=== PATIENT | male | born 1950 | race American Indian/Alaskan Native ===

== ENCOUNTER 2018-03-07 13:22 | Inpatient (IN) | payer MEDICARE ==
--- NOTE | 2018-03-07 14:23 | ED PDOC ---
HPI: General Adult Time Seen by Provider: 03/07/18 13:43 Chief Complaint (Nursing): Abnormal Labs Chief Complaint (Provider): Abnormal labs, generalized weakness History Per: Patient History/Exam Limitations: no limitations Additional Complaint(s): 67yo male, with history of kidney problems, prostate disease, diabetes, comes to ER for evaluation after he was referred to the ER by Dr. Rangel. Patient states he was evaluated by Dr. Rangel and had bloodwork done and was informed today of abnormal labs, and instructed to come to the ER. He reports recently feeling weak, shortness of breath with exertion, and "itchiness" all over his back. He also reports burning upon urination, frequency of urination and states the urine stream is "weak." Otherwise, he denies any fever, chills, chest pain, abdominal pain, and offers no other medical complaints. PMD: Dr. Rangel Past Medical History Reviewed: Historical Data, Nursing Documentation, Vital Signs Vital Signs: Last Vital Signs Temp 98.6 F 03/08/18 09:00 Pulse 97 H 03/08/18 09:00 Resp 18 03/08/18 09:00 BP 149/74 03/08/18 09:00 Pulse Ox 99 03/08/18 09:00 - Medical History PMH: Benign Prostatic Hyperplasia, Diabetes, HTN, Chronic Kidney Disease - Surgical History Surgical History: No Surg Hx - Family History Family History: States: No Known Family Hx - Living Arrangements Living Arrangements: With Family - Home Medications Home Medications: Ambulatory Orders Medication Instructions Recorded Aspirin [Ecotrin] 81 mg PO DAILY 03/07/18 Dexlansoprazole [Dexilant] 60 mg PO DAILY 03/07/18 SITagliptin [Januvia] 100 mg PO DAILY 03/07/18 Cyanocobalamin [Vitamin B12] 500 mg PO BID 03/08/18 Fish Oil/Borage/Flax/Om3,6,9#1 400 mg PO DAILY 03/08/18 [Vonore 3-6-9 Complex Softgel] - Allergies Allergies/Adverse Reactions: Allergies Allergy/AdvReac Type Severity Reaction Status Date / Time No Known Allergies Allergy Verified 03/07/18 13:32 Review of Systems ROS Statement: Except As Marked, All Systems Reviewed And Found Negative Constitutional: Positive for: Weakness. Negative for: Fever, Chills Cardiovascular: Negative for: Chest Pain Respiratory: Positive for: SOB with Exertion Gastrointestinal: Negative for: Abdominal Pain Genitourinary Male: Positive for: Frequency, Other (burning upon urination) Skin: Positive for: Other ("itchiness") Physical Exam - Reviewed Nursing Documentation Reviewed: Yes Vital Signs Reviewed: Yes - Physical Exam Appears: Positive for: Non-toxic, No Acute Distress Head Exam: Positive for: ATRAUMATIC, NORMAL INSPECTION, NORMOCEPHALIC Skin: Positive for: Normal Color Eye Exam: Positive for: Normal appearance, EOMI Neck: Positive for: Normal, Supple Cardiovascular/Chest: Positive for: Regular Rate, Rhythm Respiratory: Positive for: Normal Breath Sounds Gastrointestinal/Abdominal: Positive for: Normal Exam, Soft. Negative for: Tenderness Back: Positive for: Normal Inspection. Negative for: L CVA Tenderness, R CVA Tenderness Extremity: Positive for: Normal ROM. Negative for: Pedal Edema Neurologic/Psych: Positive for: Alert, Oriented. Negative for: Motor/Sensory Deficits - Laboratory Results Result Diagrams: 03/08/18 06:10 03/08/18 06:10 - ECG O2 Sat by Pulse Oximetry: 98 (RA) Pulse Ox Interpretation: Normal Medical Decision Making Medical Decision Makin Case discussed with Dr. Rangel who reports the patient had labs last week and had elevated creatinine, elevated BUN, hypercalcermia, and elevated prostate markers. He reports these are new findings for the patient. Impression: Acute renal failure vs. acute on chronic renal failure; dyspnea on exertion; difficulty with urination Differential: Acute renal failure; obstructive uropathy; other etiologies of acute renal failure considered but not listed. Also consider prostate cancer vs. BPH Plan: -- Labs -- Urinalysis -- Nephrology and urology consult as requested by Dr. Rangel Time: [address] Rangel, and patient to be admitted to Med-Surg under his service, for acute renal failure, dehydration and hypercalcemia. Plan for admission discussed with patient, all questions answered and patient expresses understanding and is agreeable. Call placed to Dr. Casillas for nephrology consult. Dr. Rangel requesting Dr. Nath for endocrine consult. Time: [address] Casillas and orders placed as requested. CT Abdomen/ Pelvis initially ordered with contrast but after discussion with radiologist, plan amended and CT Abdomen/Pelvis ordered. Time: [address] Hawkins, who is agreeable with plan of treatment and states he will evaluate patient at bedside. Scribe Attestation: Documented by Rhonda Frias, acting as a scribe for Ellen Salomon MD. Provider Scribe Attestation: All medical record entries made by the Scribe were at my direction and personally dictated by me. I have reviewed the chart and agree that the record accurately reflects my personal performance of the history, physical exam, medical decision making, and the department course for this patient. I have also personally directed, reviewed, and agree with the discharge instructions and disposition. Disposition - Clinical Impression Clinical Impression: ARF (acute renal failure), Dehydration, Hypercalcemia - Patient ED Disposition Is Patient to be Admitted: Yes Discussed With DrDionisio: Darwin Rangel Doctor Will See Patient In The: ED Counseled Patient/Family Regarding: Studies Performed, Diagnosis - Disposition Disposition Time: 15:44 Condition: FAIR - Pt Status Changed To: Hospital Disposition Of: Inpatient - Admit Certification Admit to Inpatient:: After my assessment, the patient will require hospitalization for at least two midnights. This is because of the severity of symptoms shown, intensity of services needed, and/or the medical risk in this patient being treated as an outpatient. - POA Present On Arrival: None
[2018-03-07 14:57] LABS: BASO # 0.1 K/uL (0.0-0.2); EOS # 0.2 K/uL (0.0-0.7); EOS % 2.1 % (0.0-4.0); HEMOGLOBIN 12.2 g/dL (12.0-18.0); LYMPH # 1.5 K/uL (1.0-4.3); LYMPH % 15.5 % (20.0-40.0); MEAN CELL VOLUME 87.1 fl (80.0-94.0); MEAN CORPUSCULAR HEMOGLOBIN 29.5 pg (27.0-31.0); MEAN CORPUSCULAR HGB CONC 33.9 g/dL (33.0-37.0); MEAN PLATELET VOLUME 7.9 fl (7.2-11.7); MONO # 0.6 K/uL (0.0-0.8); MONO % 6.4 % (0.0-10.0); NEUT # 7.2 K/uL (1.8-7.0); NRBC % 0.1 % (0.0-0.0); RBC 4.15 Mil/uL (4.40-5.90); RED CELL DISTRIBUTION WIDTH 16.4 % (11.5-14.5); WHITE BLOOD COUNT 9.6 K/uL (4.8-10.8)
[2018-03-07 15:36] LABS: CALCIUM 13.3 mg/dL (8.4-10.2)
[2018-03-07] MEDS ORDERED: Sodium Chloride 0.9% 1,000 ML IV STA (15:43)
[2018-03-07 15:49] LABS: URINE BILIRUBIN NEGATIVE (NEGATIVE); URINE BLOOD NEGATIVE (NEGATIVE); URINE CLARITY CLEAR (Clear); URINE COLOR YELLOW (YELLOW); URINE GLUCOSE (UA) 50 mg/dL (Normal); URINE LEUKOCYTE ESTERASE NEG Leu/uL (Negative); URINE PROTEIN NEGATIVE (NEGATIVE); URINE UROBILINOGEN 0.2-1.0 mg/dL (0.2-1.0)
[2018-03-07 16:02] LABS: CREATININE, RANDOM URINE 47.1 mg/dL
[2018-03-07] MEDS ORDERED: Iohexol 240 (50 ml) PO ONE (16:39)
[2018-03-07 16:46] LABS: ALB/GLOB RATIO 1.3 (1.0-2.1); ALBUMIN 4.1 g/dL (3.5-5.0); BILIRUBIN,DIRECT 0.2 mg/ml (0.0-0.4); URIC ACID 7.9 mg/Dl (3.5-8.5)
--- NOTE | 2018-03-07 18:22 | US ---
Date of service: 03/07/2018 PROCEDURE: Ultrasound of the Kidneys HISTORY: nephropathy COMPARISON: None available. TECHNIQUE: Sonogram of the kidneys. FINDINGS: RIGHT KIDNEY: Measures: 4.2 x 4.6 x 8.1 cm. Normal in size, contour and echogenicity. Echogenic focus mid pole region 5 x 6 mm with distal shadowing consistent with nonobstructing calculus. LEFT KIDNEY: Measures: 4.3 x 5.2 x 8.7 cm. Normal in size, contour and echogenicity. No stone, solid mass lesion or hydronephrosis visualized. OTHER FINDINGS: None. IMPRESSION: Nonobstructing subcentimeter calculus midpole right kidney. Otherwise unremarkable study.
--- NOTE | 2018-03-07 20:01 | CP.PCM.CON ---
History of Present Illness - History of Present Illness History of Present Illness: pt is seen and examined, full consult is dictated #[id number] Past Patient History - Infectious Disease Hx of Infectious Diseases: None - Past Social History Smoking Status: Never Smoked - CARDIAC Hx Hypertension: Yes - RENAL Hx Chronic Kidney Disease: Yes - ENDOCRINE/METABOLIC Hx Diabetes Mellitus Type 2: Yes - PSYCHIATRIC Hx Substance Use: No - ANESTHESIA Hx Anesthesia: No Meds Allergies/Adverse Reactions: Allergies Allergy/AdvReac Type Severity Reaction Status Date / Time No Known Allergies Allergy Verified 03/07/18 13:32 - Medications Medications: Current Medications Sodium Chloride (Sodium Chloride 0.9%) 1,000 mls @ 150 mls/hr IV .[id number] CASSANDRA Stop: 03/09/18 20:01 Results - Vital Signs Recent Vital Signs: Last Vital Signs Temp 98.5 F 03/07/18 13:32 Pulse 98 H 03/07/18 13:32 Resp 16 03/07/18 13:32 BP 150/78 03/07/18 13:32 Pulse Ox 98 03/07/18 16:17 - Labs Result Diagrams: 03/07/18 14:54 03/07/18 14:54 Labs: Laboratory Results - last 24 hr 03/07/18 03/07/18 03/07/18 14:54 14:54 15:25 WBC 9.6 RBC 4.15 L Hgb 12.2 Hct 36.1 MCV 87.1 MCH 29.5 MCHC 33.9 RDW 16.4 H Plt Count 449 H MPV 7.9 Neut % (Auto) 75.0 Lymph % (Auto) 15.5 L [place] % (Auto) 6.4 Eos % (Auto) 2.1 Baso % (Auto) 1.0 Neut # (Auto) 7.2 H Lymph # (Auto) 1.5 [place] # (Auto) 0.6 Eos # (Auto) 0.2 Baso # (Auto) 0.1 Sodium 134 Potassium 5.0 Chloride 98 Carbon Dioxide 22 Anion Gap 19 BUN 52 H Creatinine 5.0 H Est GFR ( Amer) 14 Est GFR (Non-Af Amer) 12 Random Glucose 100 Serum Osmolality Uric Acid Calcium 13.3 H* Phosphorus 5.5 H Magnesium 2.4 H Total Bilirubin Direct Bilirubin AST ALT Alkaline Phosphatase Total Creatine Kinase 118 Total Protein Albumin Globulin Albumin/Globulin Ratio Prostate Specific Ag Urine Color Urine Clarity Urine pH Ur Specific [place] Urine Protein Urine Glucose (UA) Urine Ketones Urine Blood Urine Nitrate Urine Bilirubin Urine Urobilinogen Ur Leukocyte Esterase Urine RBC (Auto) Urine Microscopic WBC Urine Osmolality Ur Random Creatinine 47.1 Ur Random Sodium 43 Ur Random Potassium 38.2 03/07/18 03/07/18 03/07/18 15:25 16:26 16:26 WBC RBC Hgb Hct MCV MCH MCHC RDW Plt Count MPV Neut % (Auto) Lymph % (Auto) [place] % (Auto) Eos % (Auto) Baso % (Auto) Neut # (Auto) Lymph # (Auto) [place] # (Auto) Eos # (Auto) Baso # (Auto) Sodium Potassium Chloride Carbon Dioxide Anion Gap BUN Creatinine Est GFR ( Amer) Est GFR (Non-Af Amer) Random Glucose Serum Osmolality 299 Uric Acid 7.9 Calcium Phosphorus Magnesium Total Bilirubin 0.4 Direct Bilirubin 0.2 AST 33 ALT 38 Alkaline Phosphatase 88 Total Creatine Kinase Total Protein 7.2 Albumin 4.1 Globulin 3.1 Albumin/Globulin Ratio 1.3 Prostate Specific Ag 9.02 H Urine Color Yellow Urine Clarity Clear Urine pH 6.0 Ur Specific [place] 1.009 Urine Protein Negative Urine Glucose (UA) 50 Urine Ketones Negative Urine Blood Negative Urine Nitrate Negative Urine Bilirubin Negative Urine Urobilinogen 0.2-1.0 Ur Leukocyte Esterase Neg Urine RBC (Auto) < 1 Urine Microscopic WBC 3 Urine Osmolality Ur Random Creatinine Ur Random Sodium Ur Random Potassium 03/07/18 18:30 WBC RBC Hgb Hct MCV MCH MCHC RDW Plt Count MPV Neut % (Auto) Lymph % (Auto) [place] % (Auto) Eos % (Auto) Baso % (Auto) Neut # (Auto) Lymph # (Auto) [place] # (Auto) Eos # (Auto) Baso # (Auto) Sodium Potassium Chloride Carbon Dioxide Anion Gap BUN Creatinine Est GFR ( Amer) Est GFR (Non-Af Amer) Random Glucose Serum Osmolality Uric Acid Calcium Phosphorus Magnesium Total Bilirubin Direct Bilirubin AST ALT Alkaline Phosphatase Total Creatine Kinase Total Protein Albumin Globulin Albumin/Globulin Ratio Prostate Specific Ag Urine Color Urine Clarity Urine pH Ur Specific [place] Urine Protein Urine Glucose (UA) Urine Ketones Urine Blood Urine Nitrate Urine Bilirubin Urine Urobilinogen Ur Leukocyte Esterase Urine RBC (Auto) Urine Microscopic WBC Urine Osmolality 298 L Ur Random Creatinine Ur Random Sodium Ur Random Potassium
[2018-03-07] MEDS: Sodium Chloride 0.9% 1,000 ML IV SCH (22:30)
[2018-03-08] MEDS ORDERED: Ammonium Lactate 12% Cream (140 g) TOP ONE (03:21)
[2018-03-08] MEDS: Sodium Chloride 0.9% 1,000 ML IV SCH ×5 (03:39→21:55)
[2018-03-08 07:02] LABS: MEAN CELL VOLUME 87.6 fl (80.0-94.0); MEAN CORPUSCULAR HEMOGLOBIN 29.1 pg (27.0-31.0); MEAN CORPUSCULAR HGB CONC 33.2 g/dL (33.0-37.0); RBC 3.78 Mil/uL (4.40-5.90); RED CELL DISTRIBUTION WIDTH 16.5 % (11.5-14.5); WHITE BLOOD COUNT 7.6 K/uL (4.8-10.8)
[2018-03-08 07:12] LABS: ALB/GLOB RATIO 1.2 (1.0-2.1); ALBUMIN 3.5 g/dL (3.5-5.0); CALCIUM 12.8 mg/dL (8.4-10.2)
[2018-03-08] MEDS: Insulin Regular 100 units/ml SC SCH ×4 (07:20→21:56)
--- NOTE | 2018-03-08 08:04 | CON ---
DATE: 03/07/2018ENDOCRINOLOGY CONSULT HISTORY OF PRESENT ILLNESS: This is a 67-year-old male with known history of type 2 diabetes and hypertension with chronic kidney disease who presents to his primary physician's office with generalized body weakness and diffuse pleuritis and supervening progressive shortness of breath and was actually sent over to the emergency room because of extremely abnormal lab testing and is now being referred for endocrine evaluation of hypercalcemia. PAST MEDICAL HISTORY: As mentioned above, history of type 2 diabetes, currently on Januvia, taken as 100 mg once daily, history of hypertension and dyslipidemia, history of chronic gastritis. He also admits to history of benign prostatic hypertrophy. FAMILY HISTORY Positive for diabetes, hypertension. SOCIAL HISTORY The patient has supportive family. No known substance use. REVIEW OF SYSTEMS Admits to generalized body weakness with progressive dizziness and lightheadedness, worse on the day of admission. Also admits to increasing somnolence and lethargy with suboptimal energy level. Admits to precordial chest pain with progressive shortness of breath, especially on exertion. His oral intake has been variable with nausea, dyspepsia, and variable oral intake. Also admits to dysuria and urinary hesitancy and very low urinary volume and stream over the last week or so prior to admission. Admits also to lower extremity paresthesias, especially nocturnally. PHYSICAL EXAMINATION: GENERAL: This is a male, in no apparent distress. VITAL SIGNS: Blood pressure of 150/80, pulse of 100 beats per minute and regular, temperature 98, respirations 20, height is 5 feet 4 inches, weight is 125 pounds. HEENT: Head normocephalic. Eyes anicteric with pale conjunctivae. Funduscopy not possible at this time. Ears, nose, and throat, otherwise, normal. NECK: Supple. Thyroid gland is normal in size. No carotid bruits or cervical adenopathy. CARDIOPULMONARY: Some adynamic precordium. S1, S2 is rapid and regular. LUNGS: Clear to auscultation. Abdomen is flat, soft with positive bowel sounds. EXTREMITIES: No peripheral edema. Pulses are +2 bilaterally. LABORATORY DATA: His chemistry showed a BUN of 52, sodium 134, potassium 5, chloride 98, CO2 is 22, glucose is 100, creatinine is 5, calcium level is 13.3, uric acid 7.9. His PSA level is 9.02, albumin is 4.1, phosphorus is 5.5, magnesium is 2.4. ASSESSMENT: This is a 67-year-old male with overt acute renal failure with underlying chronic kidney disease, most likely related to underlying diabetic and hypertensive nephrosclerosis with concomitant hypercalcemia, the most likely etiology would be dehydration and prerenal azotemia, although we have to exclude any underlying parathyroid related disorder. Most patients with underlying chronic kidney disease and progressive azotemia will develop secondary hyperparathyroidism although the calcium levels are not usually elevated and may actually border on the low normal side of the calcium values. So there is a very strong component here of dehydration and prerenal azotemia contributing to the hypercalcemia as noted thereof. PLAN OF MANAGEMENT: We will continue the vigorous IV hydration with normal saline infusion running at 150 mL/hour as ordered in the emergency room, and we will obtain serial chemistries and observe his clinical and biochemical response thereof to vigorous IV hydration. If hypercalcemia persists which would be unlikely if he responds to the vigorous IV hydration, then we will give him and antiresorptive medications such as subcutaneous calcitonin which we do not really carry in our hospital formulary because of the extreme formidable expense of the medication thereof. We can give him zoledronic acid as indicated. We will obtain a parathyroid hormone intact level and also repeat total calcium and ionized calcium levels with magnesium and phosphorus values to be repeated, otherwise. We will also do a parathyroid hormone reactive peptide or PTHrP to exclude any underlying malignancy related hypercalcemia. We will also obtain baseline hemoglobin A1c, TSH values, and lipid panel with hydroxy vitamin D level also to be added for tomorrow lab testing. We will also observe his glycemic fluctuations and determine the need to restart him on a much lower dose of the Januvia, especially in the light of underlying renal failure, and usually we give the lowest dose of Januvia, given as 25 mg once daily as indicated. We will follow and advised accordingly. Valerie Nath MD
--- NOTE | 2018-03-08 08:52 | CP.PCM.HP ---
History of Present Illness - History of Present Illness History of Present Illness: 67 YR OLD MALE WHO IS ADMITTED BECAUSE OF GENERALIZED WEAKNESS,PARESTHESIAS OF EXTREMITIES AND ABNORMAL LAB FINDINGS.[place] AND WAS TOLD THAT HE NEEDED DIALYSIS BUT RETURNED TO THE [place] FOR FURTHER EVAL. PMH OF DIABETES--ON RECENT LABS REVEAL HYPERCALCEMIA,ELEVATED PSA AND BUN/CR Present on Admission - Present on Admission Any Indicators Present on Admission: Yes Past Patient History - Infectious Disease Hx of Infectious Diseases: None - Past Medical History & Family History Past Medical History?: Yes - Past Social History Smoking Status: Never Smoked - CARDIAC Hx Hypertension: Yes - RENAL Hx Chronic Kidney Disease: Yes - ENDOCRINE/METABOLIC Hx Diabetes Mellitus Type 2: Yes - MUSCULOSKELETAL/RHEUMATOLOGICAL Hx Falls: No - PSYCHIATRIC Hx Substance Use: No - ANESTHESIA Hx Anesthesia: No Meds Allergies/Adverse Reactions: Allergies Allergy/AdvReac Type Severity Reaction Status Date / Time No Known Allergies Allergy Verified 03/07/18 13:32 Physical Exam - Constitutional Appears: No Acute Distress - Head Exam Head Exam: ATRAUMATIC, NORMAL INSPECTION, NORMOCEPHALIC - Eye Exam Eye Exam: EOMI, Normal appearance, PERRL Pupil Exam: NORMAL ACCOMODATION, PERRL - ENT Exam ENT Exam: Mucous Membranes Moist, Normal Exam - Neck Exam Neck exam: Positive for: Normal Inspection - Respiratory Exam Respiratory Exam: Clear to Auscultation Bilateral, NORMAL BREATHING PATTERN - Cardiovascular Exam Cardiovascular Exam: REGULAR RHYTHM - GI/Abdominal Exam GI & Abdominal Exam: Normal Bowel Sounds, Soft. absent: Tenderness - Rectal Exam Rectal Exam: NORMAL INSPECTION - Extremities Exam Extremities exam: Positive for: normal inspection - Back Exam Back exam: NORMAL INSPECTION - Neurological Exam Neurological exam: Alert, CN II-XII Intact, Normal Gait, Oriented x3, Reflexes Normal - Psychiatric Exam Psychiatric exam: Normal Affect, Normal Mood - Skin Skin Exam: Dry, Intact, Normal Color, Warm Results - Vital Signs Recent Vital Signs: Last Vital Signs Temp 98.2 F 03/08/18 00:00 Pulse 97 H 03/08/18 00:00 Resp 19 03/08/18 00:00 BP 146/72 03/08/18 00:00 Pulse Ox 98 03/08/18 00:00 - Labs Result Diagrams: 03/08/18 06:10 03/08/18 06:10 Labs: Laboratory Results - last 24 hr 03/07/18 03/07/18 03/07/18 14:54 14:54 15:25 WBC 9.6 RBC 4.15 L Hgb 12.2 Hct 36.1 MCV 87.1 MCH 29.5 MCHC 33.9 RDW 16.4 H Plt Count 449 H MPV 7.9 Neut % (Auto) 75.0 Lymph % (Auto) 15.5 L [place] % (Auto) 6.4 Eos % (Auto) 2.1 Baso % (Auto) 1.0 Neut # (Auto) 7.2 H Lymph # (Auto) 1.5 [place] # (Auto) 0.6 Eos # (Auto) 0.2 Baso # (Auto) 0.1 Sodium 134 Potassium 5.0 Chloride 98 Carbon Dioxide 22 Anion Gap 19 BUN 52 H Creatinine 5.0 H Est GFR ( Amer) 14 Est GFR (Non-Af Amer) 12 POC Glucose (mg/dL) Random Glucose 100 Serum Osmolality Uric Acid Calcium 13.3 H* Phosphorus 5.5 H Magnesium 2.4 H Total Bilirubin Direct Bilirubin AST ALT Alkaline Phosphatase Total Creatine Kinase 118 Total Protein Albumin Globulin Albumin/Globulin Ratio Prostate Specific Ag 25-OH Vitamin D Total TSH 3rd Generation Urine Color Urine Clarity Urine pH Ur Specific [place] Urine Protein Urine Glucose (UA) Urine Ketones Urine Blood Urine Nitrate Urine Bilirubin Urine Urobilinogen Ur Leukocyte Esterase Urine RBC (Auto) Urine Microscopic WBC Urine Osmolality Ur Random Creatinine 47.1 Ur Random Sodium 43 Ur Random Potassium 38.2 03/07/18 03/07/18 03/07/18 15:25 16:26 16:26 WBC RBC Hgb Hct MCV MCH MCHC RDW Plt Count MPV Neut % (Auto) Lymph % (Auto) [place] % (Auto) Eos % (Auto) Baso % (Auto) Neut # (Auto) Lymph # (Auto) [place] # (Auto) Eos # (Auto) Baso # (Auto) Sodium Potassium Chloride Carbon Dioxide Anion Gap BUN Creatinine Est GFR ( Amer) Est GFR (Non-Af Amer) POC Glucose (mg/dL) Random Glucose Serum Osmolality 299 Uric Acid 7.9 Calcium Phosphorus Magnesium Total Bilirubin 0.4 Direct Bilirubin 0.2 AST 33 ALT 38 Alkaline Phosphatase 88 Total Creatine Kinase Total Protein 7.2 Albumin 4.1 Globulin 3.1 Albumin/Globulin Ratio 1.3 Prostate Specific Ag 9.02 H 25-OH Vitamin D Total TSH 3rd Generation Urine Color Yellow Urine Clarity Clear Urine pH 6.0 Ur Specific [place] 1.009 Urine Protein Negative Urine Glucose (UA) 50 Urine Ketones Negative Urine Blood Negative Urine Nitrate Negative Urine Bilirubin Negative Urine Urobilinogen 0.2-1.0 Ur Leukocyte Esterase Neg Urine RBC (Auto) < 1 Urine Microscopic WBC 3 Urine Osmolality Ur Random Creatinine Ur Random Sodium Ur Random Potassium 03/07/18 03/07/18 03/07/18 18:30 18:30 22:05 WBC RBC Hgb Hct MCV MCH MCHC RDW Plt Count MPV Neut % (Auto) Lymph % (Auto) [place] % (Auto) Eos % (Auto) Baso % (Auto) Neut # (Auto) Lymph # (Auto) [place] # (Auto) Eos # (Auto) Baso # (Auto) Sodium Potassium Chloride Carbon Dioxide Anion Gap BUN Creatinine Est GFR ( Amer) Est GFR (Non-Af Amer) POC Glucose (mg/dL) 137 H Random Glucose Serum Osmolality Uric Acid Calcium Phosphorus Magnesium Total Bilirubin Direct Bilirubin AST ALT Alkaline Phosphatase Total Creatine Kinase Total Protein Albumin Globulin Albumin/Globulin Ratio Prostate Specific Ag 25-OH Vitamin D Total > 126.0 H TSH 3rd Generation Urine Color Urine Clarity Urine pH Ur Specific [place] Urine Protein Urine Glucose (UA) Urine Ketones Urine Blood Urine Nitrate Urine Bilirubin Urine Urobilinogen Ur Leukocyte Esterase Urine RBC (Auto) Urine Microscopic WBC Urine Osmolality 298 L Ur Random Creatinine Ur Random Sodium Ur Random Potassium 03/08/18 03/08/18 03/08/18 06:09 06:10 06:10 WBC 7.6 RBC 3.78 L Hgb 11.0 L Hct 33.1 L MCV 87.6 MCH 29.1 MCHC 33.2 RDW 16.5 H Plt Count 377 MPV Neut % (Auto) Lymph % (Auto) [place] % (Auto) Eos % (Auto) Baso % (Auto) Neut # (Auto) Lymph # (Auto) [place] # (Auto) Eos # (Auto) Baso # (Auto) Sodium 137 Potassium 4.6 Chloride 103 Carbon Dioxide 23 Anion Gap 16 BUN 52 H Creatinine 5.1 H Est GFR ( Amer) 14 Est GFR (Non-Af Amer) 11 POC Glucose (mg/dL) 122 H Random Glucose 98 Serum Osmolality Uric Acid Calcium 12.8 H Phosphorus Magnesium Total Bilirubin 0.3 Direct Bilirubin AST 36 ALT 38 Alkaline Phosphatase 91 Total Creatine Kinase Total Protein 6.4 Albumin 3.5 Globulin 2.8 Albumin/Globulin Ratio 1.2 Prostate Specific Ag 25-OH Vitamin D Total TSH 3rd Generation 3.02 Urine Color Urine Clarity Urine pH Ur Specific [place] Urine Protein Urine Glucose (UA) Urine Ketones Urine Blood Urine Nitrate Urine Bilirubin Urine Urobilinogen Ur Leukocyte Esterase Urine RBC (Auto) Urine Microscopic WBC Urine Osmolality Ur Random Creatinine Ur Random Sodium Ur Random Potassium Assessment & Plan - Assessment and Plan (Free Text) Assessment: ACUTE RENAL FAILURE HYPERCALCEMIA ELEVATED PSA--BPH/MALIGNANCY DIABETES MELLITUS NEUROPATHY Plan: ENDOCRIE/NEPHROLOGY AND UROLOGY EVALUATION IV HYDRATION CONTINUE WORKUP ORDERED - Date & Time Date: 03/08/18 Time: 08:54
--- NOTE | 2018-03-08 09:23 | CON ---
DATE: 03/07/2018 LOCATION: The patient is located in room #667, bed #1. REQUESTED BY: Darwin Rangel MD. REASON FOR EVALUATION: Acute renal failure and severe hypercalcemia, and for further evaluation. HISTORY OF PRESENT ILLNESS: Mr. Portillo is a 67-year-old elderly [place] male with past medical history significant for hypertension for about 12 years, diabetes for 12 years, GERD, and also Curtis's esophagus with a chronic kidney disease was sent from the PMD office for abnormal labs and the patient was found to have elevated creatinine and also elevated calcium levels. The patient also claims, he is feeling weak and tired and also frequency of urination about 10 to 12 times per day. Denies any nausea or vomiting. Denies any diarrhea. Denies any dysuria. Denies any swelling of the legs. PAST MEDICAL HISTORY: Significant for hypertension for 12 years, diabetes for 12 years, and chronic kidney disease. PAST SURGICAL HISTORY: Denies any surgeries. SOCIAL HISTORY: Denies any smoking. The patient does complain of social alcohol use. No drug abuse. PERSONAL HISTORY: He is in the process of divorce and he claims with the two marriages. He has about eight children. FAMILY HISTORY: Not significant. CURRENT MEDICATIONS: As per the patient. He was on Dexilant and also aspirin, vitamin D3 10,000 units daily for the last four months and ramipril. CURRENT MEDICATIONS: Current medications in the hospital include aspirin 81 mg daily, Januvia 100 mg p.o. daily, and Dexilant 60 mg p.o. daily. MEDICATIONS: Medication in the hospital, Insulin for sliding scale and IV fluids normal saline at 150 mL/hour. REVIEW OF SYSTEMS: Significant for frequency of urination and also with generalized weakness and weight loss about 12 pounds in the last two months. All other review of systems are reviewed and as per HPI and are negative. PHYSICAL EXAMINATION: GENERAL: Mr. Portillo is a 67 years old elderly male, moderately built, moderately nourished, not in acute distress. VITAL SIGNS: Blood pressure 150/78, pulse 98, respirations about 16, temperature 98.5, saturation 98%, height 5 feet 4 inches, and weight is 125 pounds, and BMI is 21.5. HEENT: Pupils normal reactive to light and accommodation. Conjunctivae pink. Sclerae anicteric. Tongue is slightly dry. Trachea is midline. No thyroid enlargement. LUNGS: Symmetric on both sides. Bilateral breath sounds present. Clear to auscultation. CVS: [place] at the fifth intercostal space, midclavicular line. S1, S2 audible. No murmur or gallop. ABDOMEN: Normal in appearance. Soft tympanic. No guarding. No rigidity. No hepatosplenomegaly. [employer] FR[employer] P[employer]ER: The patient is alert, awake, and oriented x3. Nonfocal neuro examination. Cranial nerves II through XII grossly intact. Sensory and motor system is within normal limits. EXTREMITIES: No cyanosis. No clubbing. No edema. SKIN: Turgor is poor. Skin is dry. LABORATORY DATA: Include as follows: As of 03/07/2018. WBC 9.6, hemoglobin 12.2, hematocrit is 36.1, and platelets 449. Sodium 134, potassium 5, chloride 98, CO2 22, BUN 52, creatinine is 5, glucose is 100, calcium is 13.3, phosphorous is 5.5, magnesium 2.4. CPK level is 118. Urinalysis: Yellow, clear, pH is 6, specific gravity 1.009, protein negative, glucose 50, and ketones negative, blood negative, nitrite negative, bilirubin negative, urobilinogen is 0.2 to 1, leukocyte esterase negative. Rbc is less than 1, wbc 3, and urine osmolality this evening is 298, and urine creatinine is 47.1, urine sodium is 43, and urine potassium is 38.2. Other laboratory data, as of 03/07/2018, serum osmolalities of 299, uric acid is 7.9, total bilirubin is 0.4, AST 33, ALT 38, alkaline phosphatase is 88, total protein is 7.2, albumin 4.1, and PSA level is 9, vitamin D level is more than 126. Other reports, ultrasound of the kidneys as of 03/07/2018, the right kidney is 8.1 x 4.6 x 4.2 cm, normal-sized cortical echogenicity and the echogenicity focused in the mid pole region 5 x 6 mm with distal shadowing consistent with nonobstructing calculus and the left kidney measured 8.7 x 5.2 x 4.3 cm. No stones, solid mass, or hydronephrosis visualized. Non-obstructing subcentimeter calculus in the mid pole of the right kidney and CT of the abdomen and pelvis report is pending. Chest x-ray report is pending. IMPRESSION AND PLAN: In summary, Mr. Portillo is a 67-year-old elderly [place] male with history of hypertension and diabetes with Curtis's esophagus and gastroesophageal reflux disease on vitamin D3 at 10,000 units daily, was admitted with increased BUN and creatinine and increased serum calcium level and found to have vitamin D level total more than 126. 1. Renal failure most likely acute on chronic kidney disease secondary to intravascular volume depletion secondary to hypercalcemia. 2. Hypercalcemia secondary to vitamin D intake by patient without anybody's prescription, iatrogenic. 3. Hyperphosphatemia secondary to renal failure. 4. Hypertension. 5. Dehydration. 6. Diabetes. Agree to hold antihypertensive medications and also antidiabetic medication at this time. Continue IV fluids. Normal saline at 150 mL/hour and repeat CBC, CMP, in the a.m. and also check PTH intact level and TPH related peptide. Followup chest x-ray report and followup CT abdomen and pelvis report. 7. Rule out benign prostatic hyperplasia. Thank you for allowing me to participate in your patient's care. No need for any emergency modalities at this time. Yamel Casillas MD
--- NOTE | 2018-03-08 09:56 | CT ---
Date of service: 03/07/2018 PROCEDURE: CT Abdomen and Pelvis with contrast HISTORY: dysuria,ARF COMPARISON: None. TECHNIQUE: Oral contrast only. Radiation dose: Total exam DLP = 267.31 mGy-cm. This CT exam was performed using one or more of the following dose reduction techniques: Automated exposure control, adjustment of the mA and/or kV according to patient size, and/or use of iterative reconstruction technique. FINDINGS: LOWER THORAX: Unremarkable. LIVER: Unremarkable. No gross lesion or ductal dilatation. GALLBLADDER AND BILE DUCTS: Unremarkable. PANCREAS: Unremarkable. No gross lesion or ductal dilatation. SPLEEN: Unremarkable. ADRENALS: Unremarkable. No mass. KIDNEYS AND URETERS: Right kidney: Tiny nonobstructing calculi none exceeding 3 mm. No evidence of hydronephrosis. Left kidney in ureter: Unremarkable. VASCULATURE: Unremarkable. No aortic aneurysm. BOWEL: Constipation without fecal impaction or obstruction. APPENDIX: Normal appendix. PERITONEUM: Unremarkable. No free fluid. No free air. LYMPH NODES: Unremarkable. No enlarged lymph nodes. BLADDER: Unremarkable. REPRODUCTIVE: Unremarkable. BONES: No acute fracture. OTHER FINDINGS: None. IMPRESSION: No acute findings related to/accounting for the clinical presentation. Additional benign and/or incidental findings described above. Concordant results (preliminary interpretation) provided by [employer]. Procedure Completed: 19:38 Preliminary ([employer]) Report: Dictated and Authenticated: 20:34. Final Interpretation: 09:54. March 08, 2018.
--- NOTE | 2018-03-08 10:00 | CP.PCM.PN ---
Subjective - Date & Time of Evaluation Date of Evaluation: 03/08/18 Time of Evaluation: 09:58 - Subjective Subjective: pt is seen and examined, follow up consult is dictated #[id number] 1. Jin on ckd 2.vit.d intoxication 3. hypercacemia 4. dehydration 5. htn 6. dm c/w ivf ns at 150 ml/hr add renvela 800 mg po tid with food bmp daily check pth intact, pth rp check HTLV1 ab Objective - Vital Signs/Intake and Output Vital Signs (last 24 hours): Temp Pulse Resp BP Pulse Ox 98.6 F 97 H 18 149/74 99 03/08/18 09:00 03/08/18 09:00 03/08/18 09:00 03/08/18 09:00 03/08/18 09:00 - Medications Medications: Current Medications Sodium Chloride (Sodium Chloride 0.9%) 1,000 mls @ 150 mls/hr IV .Q6H40M [facility] Stop: 03/09/18 20:01 Last Admin: 03/08/18 06:21 Dose: 150 mls/hr Insulin Human Regular (Humulin R) 0 units SC ACHS CASSANDRA PRN Reason: Protocol Last Admin: 03/08/18 07:20 Dose: Not Given - Labs Labs: 03/08/18 06:10 03/08/18 06:10
--- NOTE | 2018-03-08 10:11 | RAD ---
Date of service: 03/07/2018 HISTORY: htn, dm, ckd, r/o chf, r/o pneumonia COMPARISON: No prior. FINDINGS: LUNGS: No active pulmonary disease. PLEURA: No significant pleural effusion identified, no pneumothorax apparent. CARDIOVASCULAR: Normal. OSSEOUS STRUCTURES: No significant abnormalities. VISUALIZED UPPER ABDOMEN: Normal. OTHER FINDINGS: None. IMPRESSION: No acute cardiopulmonary disease appreciated.
[2018-03-08] MEDS: Sevelamer Carb 0.8 gm/Packet PO SCH ×2 (13:13→18:21)
[2018-03-08 17:57] LABS: FOLATE > 20.0 ng/mL
--- NOTE | 2018-03-08 20:13 | PN ---
DATE: 03/08/2018 ENDO FOLLOWUP NOTE LOCATION: In room #667. SUBJECTIVE: This is a 67-year-old male with known history of hypercalcemia and admitted here with dehydration and acute renal failure superimposed on chronic kidney disease with marked calcium accelerations and has received vigorous IV hydration and is being followed closely now for metabolic management. His oral intake has improved today as noted. His latest chemistry shows a BUN of 52, sodium 137, potassium 4.6, chloride 103, CO2 23, glucose 98, and creatinine 5.1. His glucose levels have also improved and have ranged from 97 to 122 and 137 mg/dL. His calcium level is down to 12.8 mg/dL. His 25-hydroxyvitamin D level is extremely elevated and actually over 126 as noted. He admits to taking vitamin D3 capsules at 10,000 units once or twice daily for the last many months, but which he apparently stopped a few weeks ago. ASSESSMENT: This is a 67-year-old male with marked hypercalcemia presenting here with acute renal failure superimposed on chronic kidney disease, most likely related to diabetic and hypertensive nephrosclerosis and the possibility always of whether we are dealing with a secondary hyperparathyroidism versus a superimposed primary hyperparathyroid condition over chronic kidney disease causing the marked calcium accelerations is being worked up at this point in time. PLAN OF MANAGEMENT: We are awaiting the reports of the parathyroid hormone intact level and PTH related protein, which will give some clarification whether we are dealing purely with secondary hyperparathyroidism versus a superimposed primary hyperparathyroid condition at this time. Would highly recommend a parathyroid nuclear scanning, which could be done on the outpatient to fully delineate his parathyroid glands and whether we are dealing with a single adenoma versus parathyroid hyperplasia at this time. We will also continue the vigorous IV hydration with normal saline running at 150 mL/hour. We will obtain serial chemistries and supplement accordingly as needed. We will hold off the resumption of any oral hypoglycemic drug therapy for type 2 diabetes as his oral intake is variable and his glycemic profile is within the optimal range as noted. We will follow. Valerie Nath MD
--- NOTE | 2018-03-09 04:40 | PN ---
DATE: 03/08/2018 FOLLOWUP RENAL CONSULTATION LOCATION: The patient is located in room 667, bed 1. REQUESTED BY: Darwin Rangel MD REASON FOR FOLLOWUP: Hypercalcemia, renal failure, hypertension, diabetes, and dehydration. HISTORY OF PRESENT ILLNESS: Mr. Portillo is a 67-year-old [place] male with a history of longstanding hypertension, diabetes, chronic kidney disease who was admitted with weakness and worsening renal function and abnormal labs. The patient was found to have severe hypercalcemia and elevated serum creatinine and also found to have very high vitamin D levels. The patient is not in acute distress, feeling slightly better today. No chest pain or palpitation. No fever, no cough, no abdominal pain. No nausea, vomiting, diarrhea. PHYSICAL EXAMINATION: VITAL SIGNS: As follows: This morning, blood pressure 149/74, pulse 97, respirations 18, temperature 98.6, saturation 99%. Height 5 feet 4 inches, weight is 125 pounds. GENERAL: Mr. Portillo is a 67-year-old elderly male, moderately built, moderately nourished, not in acute distress. HEENT: Pupils are normal and reactive to light and accommodation. Conjunctivae pink. Sclerae anicteric. Tongue is moist. Trachea is midline. LUNGS: Symmetry on both sides. Bilateral breath sounds present. Clear to auscultation. CVS: [place] at the fifth intercostal space, midclavicular line. S1, S2 audible. No murmur or gallop. ABDOMEN: Normal in appearance, soft, tympanic. No guarding. No rigidity. No hepatosplenomegaly. STATUE MAKER: The patient is alert, awake, and oriented x3. Nonfocal neuro examination. Cranial nerves II through XII grossly intact. Sensory and motor system is within normal limits. EXTREMITIES: No cyanosis, no clubbing, no edema. MEDICATIONS: His current medications include as follows: Humulin R for sliding scale, Renvela 800 mg p.o. t.i.d., IV fluids normal saline at 150 mL/hr. LABORATORY DATA: Include as follows: As of 03/08/2018, WBC 7.6, hemoglobin 11, hematocrit is 33.1, platelets 377. Sodium 137, potassium 4.6, chloride 103, CO2 of 23, BUN 52, creatinine 5.1, glucose 122, calcium 12.8, hemoglobin A1c 5.8. Total bili 0.3, AST 36, ALT 38, alkaline phosphatase 91, total protein 6.4, albumin is 3.5, PSA is 8.65. Vitamin B12 is more than 1000, and vitamin D total is more than 126, and folic acid is more than 20. TSH is 3.02. Urine culture is negative. Other reports: Chest x-ray as of 03/07/2018, no acute cardiopulmonary disease appreciated. IMPRESSION: In summary, Mr. Portillo is a 67-year-old elderly male with a history of hypertension, diabetes, chronic kidney disease, vitamin D supplement 10,000 units daily for the last 4 months who was admitted with weakness and also worsening renal function and found to have severe hypercalcemia, calcium more than 13.3 and elevated serum creatinine. 1. Renal failure, most likely acute renal failure on chronic kidney disease secondary to intravascular depletion, secondary to hypercalcemia and polyuria. 2. Dehydration. 3. Hypercalcemia secondary to vitamin D intoxication over a period of 4 months. 4. Hypertension. 5. Diabetes. Continue to monitor his Accu-Cheks and blood pressure. Continue IV fluids, normal saline at 150 mL/hr and also try to obtain HTLV-I antibody and repeat CMP and CBC in a.m. Thank you for allowing me to participate in your patient's care. Yamel Casillas MD
[2018-03-09] MEDS: Sodium Chloride 0.9% 1,000 ML IV SCH ×3 (04:46→23:14)
[2018-03-09] MEDS: Insulin Regular 100 units/ml SC SCH ×4 (06:41→22:08)
[2018-03-09 07:15] LABS: ALB/GLOB RATIO 1.2 (1.0-2.1); ALBUMIN 3.7 g/dL (3.5-5.0); CALCIUM 12.6 mg/dL (8.4-10.2)
[2018-03-09] MEDS: Sevelamer Carb 0.8 gm/Packet PO SCH ×3 (08:43→16:11)
--- NOTE | 2018-03-09 10:01 | CP.PCM.PN ---
Subjective - Date & Time of Evaluation Date of Evaluation: 03/09/18 Time of Evaluation: 10:03 - Subjective Subjective: FEELS BETTER STILL HAS PARESTHESIAS OF LEGS NO CHEST PAINS/SOB NO DIFFICULTY WITH URINATION PT INDICATES THAT SISTER HAD HYPERCALCEMIA DUE TO PARATHYROID DZ AND HAD TO UNDERGO SURGERY IN THE PAST. Objective - Vital Signs/Intake and Output Vital Signs (last 24 hours): Temp Pulse Resp BP Pulse Ox 98.3 F 90 20 146/65 98 03/09/18 08:09 03/09/18 08:09 03/09/18 08:09 03/09/18 08:09 03/09/18 08:09 - Medications Medications: Current Medications Sodium Chloride (Sodium Chloride 0.9%) 1,000 mls @ 150 mls/hr IV .Q6H40M [facility] Stop: 03/09/18 20:01 Last Admin: 03/09/18 04:46 Dose: 150 mls/hr Insulin Human Regular (Humulin R) 0 units SC ACHS CASSANDRA PRN Reason: Protocol Last Admin: 03/09/18 06:41 Dose: Not Given Sevelamer Carbonate (Renvela) 0.8 gm PO TIDWM [facility] Last Admin: 03/09/18 08:43 Dose: 0.8 gm - Labs Labs: 03/08/18 06:10 03/09/18 06:20 - Constitutional Appears: No Acute Distress - Head Exam Head Exam: ATRAUMATIC, NORMAL INSPECTION, NORMOCEPHALIC - Eye Exam Eye Exam: EOMI, Normal appearance, PERRL Pupil Exam: NORMAL ACCOMODATION, PERRL - ENT Exam ENT Exam: Mucous Membranes Moist, Normal Exam - Neck Exam Neck Exam: Full ROM, Normal Inspection. absent: Lymphadenopathy - Respiratory Exam Respiratory Exam: Clear to Ausculation Bilateral, NORMAL BREATHING PATTERN - Cardiovascular Exam Cardiovascular Exam: REGULAR RHYTHM, +S1, +S2. absent: Murmur - GI/Abdominal Exam GI & Abdominal Exam: Soft, Normal Bowel Sounds. absent: Tenderness - Rectal Exam Rectal Exam: NORMAL INSPECTION - Extremities Exam Extremities Exam: Full ROM, Normal Capillary Refill, Normal Inspection. absent : Joint Swelling, Pedal Edema - Back Exam Back Exam: NORMAL INSPECTION - Neurological Exam Neurological Exam: Alert, Awake, CN II-XII Intact, Normal Gait, Oriented x3 - Psychiatric Exam Psychiatric exam: Normal Affect, Normal Mood - Skin Skin Exam: Dry, Intact, Normal Color, Warm Assessment and Plan - Assessment and Plan (Free Text) Assessment: ACUTE RENAL FAILURE DM TYPE 2 HYPERCALCEMIA--R/O PARATHYROID DZ/VITAMIN D INTOXICATION ANEMIA--PROBABLY OF CHRONIC DZ Plan: PARATHYROID SCAN CONTINUE IV HYDRATION MONITOR RENAL FUNCTION AND CALCIUM PARATHYROID SCAN ENDOCRINE AND NEPHROLOGY EVAL APPRECIATED AWAIT NEPHROLOGY EVAL
--- NOTE | 2018-03-09 10:39 | CP.PCM.CON ---
History of Present Illness - History of Present Illness History of Present Illness: UROLOGY this 67 yr male seen for eval of elevated bun/creat and elev psa. According to pt this started after a bout of ood ppoisioning 2 months ago. Since then he had multi organ problems including renal failure , hyper calcemia nd elevated glucuse Clinically CT shows no hydronephrosis and no bladder distention. BUN /CREAT are elevated and nephrology has been advised.His psa is in excess of 8.6 at this time. On pe he has no suprapubic fullness urine is clear and he denies difficulty voiding. With reference to elevated PSA it is adviseable to schedule a prostate biopsy. Will cordinate with Dr bejarano the timing Past Patient History - Infectious Disease Hx of Infectious Diseases: None - Past Medical History & Family History Past Medical History?: Yes - Past Social History Smoking Status: Never Smoked - CARDIAC Hx Hypertension: Yes - RENAL Hx Chronic Kidney Disease: Yes - ENDOCRINE/METABOLIC Hx Diabetes Mellitus Type 2: Yes - MUSCULOSKELETAL/RHEUMATOLOGICAL Hx Falls: No - PSYCHIATRIC Hx Substance Use: No - ANESTHESIA Hx Anesthesia: No Meds Allergies/Adverse Reactions: Allergies Allergy/AdvReac Type Severity Reaction Status Date / Time No Known Allergies Allergy Verified 03/07/18 13:32 - Medications Medications: Current Medications Sodium Chloride (Sodium Chloride 0.9%) 1,000 mls @ 150 mls/hr IV .Q6H40M [facility] Stop: 03/09/18 20:01 Last Admin: 03/09/18 04:46 Dose: 150 mls/hr Insulin Human Regular (Humulin R) 0 units SC ACHS CASSANDRA PRN Reason: Protocol Last Admin: 03/09/18 06:41 Dose: Not Given Sevelamer Carbonate (Renvela) 0.8 gm PO TIDWM [facility] Last Admin: 03/09/18 08:43 Dose: 0.8 gm Results - Vital Signs Recent Vital Signs: Last Vital Signs Temp 98.3 F 03/09/18 08:09 Pulse 90 03/09/18 08:09 Resp 20 03/09/18 08:09 BP 146/65 03/09/18 08:09 Pulse Ox 98 03/09/18 08:09 - Labs Result Diagrams: 03/08/18 06:10 03/09/18 06:20 Labs: Laboratory Results - last 24 hr 03/07/18 03/08/18 03/08/18 18:30 06:10 06:10 Sodium Potassium Chloride Carbon Dioxide Anion Gap BUN Creatinine Est GFR ( Amer) Est GFR (Non-Af Amer) POC Glucose (mg/dL) Random Glucose Hemoglobin A1c 5.8 Calcium Phosphorus Total Bilirubin AST ALT Alkaline Phosphatase Total Protein Albumin Globulin Albumin/Globulin Ratio Prostate Specific Ag Vitamin B12 25-OH Vitamin D Total > 126.0 H Folate PTH Intact Whole Molec 1 L 03/08/18 03/08/18 03/08/18 11:09 11:33 15:48 Sodium Potassium Chloride Carbon Dioxide Anion Gap BUN Creatinine Est GFR ( Amer) Est GFR (Non-Af Amer) POC Glucose (mg/dL) 97 102 Random Glucose Hemoglobin A1c Calcium Phosphorus Total Bilirubin AST ALT Alkaline Phosphatase Total Protein Albumin Globulin Albumin/Globulin Ratio Prostate Specific Ag 8.65 H Vitamin B12 > 1000 H 25-OH Vitamin D Total Folate > 20.0 PTH Intact Whole Molec 03/08/18 03/09/18 03/09/18 21:38 06:20 06:22 Sodium 137 Potassium 4.5 Chloride 105 Carbon Dioxide 21 L Anion Gap 16 BUN 48 H Creatinine 4.6 H Est GFR ( Amer) 16 Est GFR (Non-Af Amer) 13 POC Glucose (mg/dL) 113 H 88 Random Glucose 92 Hemoglobin A1c Calcium 12.6 H Phosphorus 4.9 H Total Bilirubin 0.5 AST 37 ALT 36 Alkaline Phosphatase 72 Total Protein 6.8 Albumin 3.7 Globulin 3.1 Albumin/Globulin Ratio 1.2 Prostate Specific Ag Vitamin B12 25-OH Vitamin D Total Folate PTH Intact Whole Molec
[2018-03-09 11:40] LABS: IRON 35 ug/dL (49-181)
[2018-03-09 11:49] LABS: % IRON SATURATION 16 % (20-55); TOTAL IRON BINDING CAPACITY 216 ug/dL (250-450)
--- NOTE | 2018-03-09 13:22 | CARD ---
APPROVED REPORT Date of service: 03/09/2018 EKG Measurement Heart [id number] <Conclusion> Normal sinus rhythm Left axis deviation Abnormal ECG
[2018-03-09] MEDS ORDERED: Calcitonin 200 Int Units/Inh Nasal Spray (3.7 ml) NAS STA (19:38)
--- NOTE | 2018-03-09 19:42 | CP.PCM.PN ---
Subjective - Date & Time of Evaluation Date of Evaluation: 03/09/18 Time of Evaluation: 19:40 - Subjective Subjective: pt is seen and examined, follow up consult is dictated #[id number] will calcitonin 200 iu intranasal x1 dose toady c/w ivf ns at 150 ml/hr hypercalcemia sec to vit D intoxication , not due to primary hyperparathyroidism Objective - Vital Signs/Intake and Output Vital Signs (last 24 hours): Temp Pulse Resp BP Pulse Ox 98.1 F 86 18 142/71 96 03/09/18 16:04 03/09/18 16:04 03/09/18 16:04 03/09/18 16:04 03/09/18 16:04 - Medications Medications: Current Medications Calcitonin [place] (Miacalcin) 200 intlu MARYANNE DAILY STA Stop: 03/09/18 19:39 Sodium Chloride (Sodium Chloride 0.9%) 1,000 mls @ 150 mls/hr IV .Q6H40M [facility] Stop: 03/09/18 20:01 Last Admin: 03/09/18 12:09 Dose: Not Given Ceftriaxone Sodium 1 gm/ (Sodium Chloride) 100 mls @ 100 mls/hr IVPB DAILY CASSANDRA PRN Reason: Protocol Stop: 03/11/18 09:59 Last Admin: 03/09/18 18:29 Dose: 100 mls/hr Insulin Human Regular (Humulin R) 0 units SC ACHS CASSANDRA PRN Reason: Protocol Last Admin: 03/09/18 16:13 Dose: Not Given Sevelamer Carbonate (Renvela) 0.8 gm PO TIDWM C[facility]ANDRA Last Admin: 03/09/18 16:11 Dose: 0.8 gm Sodium Phosphate (Fleet Enema) 135 ml OK ONCE ONE Stop: 03/10/18 18:01 - Labs Labs: 03/08/18 06:10 03/09/18 06:20
--- NOTE | 2018-03-09 20:38 | PN ---
DATE: 03/09/2018 ENDO FOLLOWUP NOTE LOCATION: In room 667. SUBJECTIVE: This is a 67-year-old male with recent admission for malignant hypercalcemia and associated acute renal failure with underlying chronic kidney disease and is now being followed closely for metabolic management. His glycemic levels are also fluctuating, but improved, and the glucose values have ranged from 88 to 113 and 132 mg/dL. His latest calcium level now is 12.6 mg/dL. LABORATORY DATA: The latest chemistries showed a BUN of 48, sodium 137, potassium 4.5, chloride 105, CO2 of 21, glucose 92, and creatinine 4.6. His parathyroid hormone levels are still pending at this time. His vitamin D level was extremely elevated with a value of over 126. The patient admits to having been taken high dose of vitamin D3 at 10,000 units once a day for several months as noted. He has since then discontinued the medication as discussed at bedside. ASSESSMENT: This is a 67-year-old male with malignant range hypercalcemia and the possibility of whether we are dealing with primary versus secondary hyperparathyroidism with underlying chronic kidney disease is being worked up at this point in time. PLAN OF MANAGEMENT: We will continue with vigorous IV hydration with normal saline infusion as given. I strongly reemphasized to the patient at bedtime that he cannot go back on the vitamin D supplementation on the outpatient because of the aforementioned hypercalcemic values as noted. We will obtain serial chemistries and supplement accordingly as needed. We will also await the report of the parathyroid hormone intact level and a PTHrP, which was screened for any underlying secondary related hypercalcemia or the so-called humoral hypercalcemia of malignancy. We will obtain serial chemistries and supplement accordingly as needed. We will follow the patient. Valerie Nath MD
[2018-03-10] MEDS: Sodium Chloride 0.9% 1,000 ML IV SCH ×6 (01:49→20:00)
--- NOTE | 2018-03-10 03:37 | PN ---
DATE: 03/09/2018 FOLLOWUP RENAL CONSULTATION LOCATION: The patient is located room 667, bed 1. REQUESTED BY: Darwin Rangel MD REASON FOR RENAL CONSULTATION: A followup of renal failure, acute renal failure, chronic kidney disease, hypercalcemia, and generalized weakness. SUBJECTIVE: Mr. Portillo is a 67-year-old elderly [place] male with a history of longstanding hypertension, diabetes, chronic kidney disease, on vitamin D intake 10,000 units daily who was admitted with chief complaints of worsening renal function, severe hypercalcemia, frequency of urination and dehydration. The patient was started on IV fluids normal saline at 150 mL/hour. The patient claims he has a good urine output. Denies any complaints. Feeling much better since admission. Renal function is slowly improving. Still has hypercalcemia. No nausea, vomiting, or diarrhea. PHYSICAL EXAMINATION: VITAL SIGNS: As follows: Blood pressure 142/71, pulse 86, respirations 18, temperature 98.1, saturation 96. Height 5 feet 4 inches. Weight is 125 pounds. GENERAL: Mr. Portillo is a 67-year-old elderly male, moderate built, moderate nourished, not in acute distress. HEENT: Pupils are normal and reactive to light and accommodation. Conjunctivae are pink. Sclerae are anicteric. Tongue is moist. Trachea is midline. LUNGS: Symmetry on both sides. Bilateral breath sounds present. Clear to auscultation. CVS: [place] at the fifth intercostal space, midclavicular line. S1, S2 audible. No murmur or gallop. ABDOMEN: Normal in appearance, soft, tympanic. No guarding. No rigidity. No hepatosplenomegaly. [place]: The patient is alert, awake, oriented x3. Nonfocal neuro examination. Cranial nerves II-XII grossly intact. Sensory and motor system is within normal limits. EXTREMITIES: No cyanosis, no clubbing, no edema. CURRENT MEDICATIONS: Include as follows: Rocephin 1 gm daily, Fleet Enema, regular insulin p.r.n., Renvela 800 mg p.o. t.i.d. Continue IV fluids at 150 mL/hour. CURRENT LABORATORY DATA: Include as follows as of 03/09/2018: Sodium 137, potassium 4.5, chloride 105, CO2 21, BUN 48, creatinine 4.6, glucose is 92, calcium 12.6, and phosphorus is 4.9. Total bili 0.5, AST 37, ALT 36, alkaline phosphatase 72, total protein 6.8, albumin is 3.7. PTH level is 1, very, very low. Iron is 35, TIBC 216, saturation 16, and ferritin is 329. Accu-Cheks 132, 117 and 109. Urine culture is negative. In summary, Mr. Portillo is a 67-year-old elderly [place] male with hypertension, diabetes, chronic kidney disease with increased blood urea nitrogen and creatinine, hypercalcemia and low parathyroid hormone. 1. Acute renal failure on chronic kidney disease, most likely secondary to intravascular depletion secondary to severe hypercalcemia. 2. Severe hypercalcemia secondary to vitamin D intoxication, iatrogenic, self medicated. 3. Hypertension. Blood pressure is stable. 4. Diabetes. Sugars are under control. PLAN: Continue IV fluids normal saline at 150 mL/hour. We will give calcitonin 200 international units intranasal x1 dose and repeat BMP and CBC in a.m. We will follow with you. Thank you for allowing me to participate in your patient's care. Yamel Casillas MD
[2018-03-10 06:41] LABS: HEMOGLOBIN 10.7 g/dL (12.0-18.0); MEAN CELL VOLUME 87.7 fl (80.0-94.0); MEAN CORPUSCULAR HEMOGLOBIN 29.7 pg (27.0-31.0); MEAN CORPUSCULAR HGB CONC 33.8 g/dL (33.0-37.0); RBC 3.62 Mil/uL (4.40-5.90); RED CELL DISTRIBUTION WIDTH 16.4 % (11.5-14.5); WHITE BLOOD COUNT 7.1 K/uL (4.8-10.8)
[2018-03-10] MEDS: Insulin Regular 100 units/ml SC SCH ×4 (07:11→21:55)
--- NOTE | 2018-03-10 08:42 | CP.PCM.PN ---
Subjective - Date & Time of Evaluation Date of Evaluation: 03/10/18 Time of Evaluation: 08:42 - Subjective Subjective: NO NEW FINDINGS PTH SCAN SCHEDULED CASE DISCUSSED WITH UROLOGIST--PT TO BE SCHEDULED FOR PROSTATE BIOPSY IN AM WILL CONTINUE CURRENT RX Objective - Vital Signs/Intake and Output Vital Signs (last 24 hours): Temp Pulse Resp BP Pulse Ox 98.3 F 84 18 133/70 98 03/10/18 08:38 03/10/18 08:38 03/10/18 08:38 03/10/18 08:38 03/10/18 08:38 - Medications Medications: Current Medications Ceftriaxone Sodium 1 gm/ (Sodium Chloride) 100 mls @ 100 mls/hr IVPB DAILY CASSANDRA PRN Reason: Protocol Stop: 03/11/18 09:59 Last Admin: 03/09/18 18:29 Dose: 100 mls/hr Sodium Chloride (Sodium Chloride 0.9%) 1,000 mls @ 150 mls/hr IV .Q6H40M [facility] Stop: 03/11/18 22:26 Last Admin: 03/10/18 05:30 Dose: Not Given Insulin Human Regular (Humulin R) 0 units SC ACHS CASSANDRA PRN Reason: Protocol Last Admin: 03/10/18 07:11 Dose: Not Given Sevelamer Carbonate (Renvela) 0.8 gm PO TIDWM CASSANDRA Last Admin: 03/09/18 16:11 Dose: 0.8 gm Sodium Phosphate (Fleet Enema) 135 ml [place] ONCE ONE Stop: 03/10/18 18:01 - Labs Labs: 03/10/18 06:15 03/10/18 06:15
[2018-03-10] MEDS: Sevelamer Carb 0.8 gm/Packet PO SCH ×3 (09:33→17:27)
--- NOTE | 2018-03-10 12:44 | NM ---
Date of service: 03/09/2018 PROCEDURE: Nuclear medicine Parathyroid Scan HISTORY: ADENOMA COMPARISON: None available. TECHNIQUE: 26.5 mCi of technetium sestamibi was administered intravenously. Planar images of the neck were obtained at 15 min and 3 hr post tracer injection. 12.4 mCi of technetium pertechnetate were administered 3 hr after sestamibi administration. Single planar image of the neck was obtained FINDINGS: Homogeneous symmetric uptake of sestamibi was demonstrated the thyroid gland. No delayed focal uptake was observed to suggest a parathyroid adenoma. Normal symmetric uptake of pertechnetate was observed in the thyroid gland. Physiologic uptake was seen in the salivary glands. IMPRESSION: No evidence of parathyroid adenoma.
[2018-03-10 13:16] LABS: PARTIAL THROMBOPLASTIN TIME 32.5 Seconds (25.6-37.1); PROTHROMBIN TIME 11.4 Seconds (9.8-13.1)
--- NOTE | 2018-03-10 13:17 | CP.PCM.PN ---
Subjective - Date & Time of Evaluation Date of Evaluation: 03/10/18 Time of Evaluation: 13:17 - Subjective Subjective: pt is seen and examined, follow up consult is dictated #[id number] Objective - Vital Signs/Intake and Output Vital Signs (last 24 hours): Temp Pulse Resp BP Pulse Ox 98.3 F 84 18 133/70 98 03/10/18 08:38 03/10/18 08:38 03/10/18 08:38 03/10/18 08:38 03/10/18 08:38 - Medications Medications: Current Medications Ceftriaxone Sodium 1 gm/ (Sodium Chloride) 100 mls @ 100 mls/hr IVPB DAILY CASSANDRA PRN Reason: Protocol Stop: 03/11/18 09:59 Last Admin: 03/10/18 09:33 Dose: 100 mls/hr Sodium Chloride (Sodium Chloride 0.9%) 1,000 mls @ 150 mls/hr IV .Q6H40M [facility] Stop: 03/11/18 22:26 Last Admin: 03/10/18 12:39 Dose: 150 mls/hr Insulin Human Regular (Humulin R) 0 units SC ACHS CASSANDRA PRN Reason: Protocol Last Admin: 03/10/18 11:18 Dose: Not Given Lorazepam (Ativan) 0.5 mg PO HS PRN PRN Reason: Sleep Sevelamer Carbonate (Renvela) 0.8 gm PO TIDWM [facility] Last Admin: 03/10/18 12:39 Dose: 0.8 gm Sodium Phosphate (Fleet Enema) 135 ml ID ONCE ONE Stop: 03/10/18 18:01 - Labs Labs: 03/10/18 06:15 03/10/18 06:15 PT 11.4 Seconds (9.8-13.1) 03/10/18 12:50 INR 1.0 (0.9-1.2) 03/10/18 12:50 APTT 32.5 Seconds (25.6-37.1) 03/10/18 12:50
[2018-03-10] MEDS ORDERED: Calcitonin 200 Int Units/Inh Nasal Spray (3.7 ml) NAS ONE (14:00)
--- NOTE | 2018-03-10 16:35 | PN ---
DATE: 03/10/2018 ENDO FOLLOWUP NOTE LOCATION: In room 667. SUBJECTIVE: This is a 67-year-old male with recent admission for malignant hypercalcemia and received vigorous IV hydration with normal saline infusion as given. He is undergoing a comprehensive hormonal workup for the aforementioned. LABORATORY DATA: His latest chemistries today showed a BUN of 44, sodium 136, potassium 4.5, chloride 107, CO2 of 19, glucose 86, and creatinine 4.3. His calcium level is 12 mg/dL at this time. His glucose values have improved and are ranging from 88 to 109 mg/dL overnight as noted. ASSESSMENT: This is a 67-year-old male with malignant range hypercalcemia, presenting here with acute renal failure on the background of underlying chronic kidney disease secondary to both diabetic and hypertensive nephrosclerosis. The possibility of whether we are dealing with primary versus secondary hyperparathyroidism is being worked up at this time. He also had vitamin D intoxication with a vitamin D level over 126, which would clearly contribute to the marked hypercalcemic accelerations as noted thereof. PLAN OF MANAGEMENT: As discussed lengthily with the patient at bedside, imperatively to completely stop further vitamin D oral supplementations, and it has to be undertaken right away, and the patient understands that he cannot go back on the vitamin D supplements even on the outpatient management. He also was advised to increase his water intake and hydration as noted. Moreover, his normal saline infusion was discontinued, and we will observe his biochemical indices thereof and determine the need to restart it if at all indicated. We are awaiting the results of the PTHrP level. However, the parathyroid hormone intact level was reported as 1, which will exclude any underlying parathyroid related etiology for the hypercalcemia, but this is quite a strange result, and we will verify with Pathology regarding the aforementioned. We will repeat the PTH level today as ordered. We will follow this. Valerie Nath MD
[2018-03-11] MEDS: Sodium Chloride 0.9% 1,000 ML IV SCH ×4 (01:20→21:15)
--- NOTE | 2018-03-11 02:29 | PN ---
DATE: 03/10/2018 FOLLOWUP RENAL CONSULTATION LOCATION: The patient is located in room 669, bed 2. REQUESTED BY: Darwin Rangel MD REASON FOR FOLLOWUP: Acute renal failure, hypercalcemia, and chronic kidney disease. SUBJECTIVE: Mr. Portillo is a 67-year-old elderly male from [facility] with a past medical history significant for longstanding hypertension, diabetes, chronic kidney disease, was found to have hypercalcemia of about 13.3 and serum creatinine about 8.1 few months ago, was seen by PMD, Dr. Rangel, and referred to the emergency room for further evaluation for polyuria and worsening renal function. The patient was found to have hypercalcemia of more than 13.3 and also creatinine more than 5 and was found to be dehydrated and also started on IV fluids and serum calcium is slowly improving and also started on calcitonin 200 international units intranasal. The patient was given first dose on 03/09/2018 and also ordered a second dose today. The patient is feeling better, not in acute distress. Denies any headache, dizziness. Denies any chest pain, palpitation. No fever. No cough. No abdominal pain. No nausea, vomiting, diarrhea. PHYSICAL EXAMINATION: VITAL SIGNS: As follows: Blood pressure this morning 133/70, pulse 84, respiration 18, temperature 98.3, saturation 98%. Height 5 feet 4 inches. Weight is 125 pounds. GENERAL: Mr. Portillo is a 67-year-old male, moderately built, moderately nourished, not in distress. HEENT: Pupils are normal and reactive to light and accommodation. Conjunctivae are pink. Sclerae are anicteric. Tongue is moist. Trachea is midline. LUNGS: Symmetry on both sides. Bilateral breath sounds present. Clear to auscultation. CVS: [place] at the fifth intercostal space, midclavicular line. S1, S2 audible. No murmur or gallop. ABDOMEN: Normal in appearance. Soft, tympanic. No guarding. No rigidity. No hepatosplenomegaly. QA DEVELOPER: The patient is alert, awake and oriented x3. Nonfocal neuro examination. Cranial nerves II-XII grossly intact. Sensory and motor system is within normal limits. EXTREMITIES: No cyanosis, no clubbing, no edema. CURRENT MEDICATIONS: Include as follows: Lorazepam 0.5 mg p.o. at bedtime, Rocephin 1 g daily, Humulin R per sliding scale, Renvela 800 mg p.o. t.i.d., IV fluids normal saline at 150 mL/hour, Tylenol 650 mg p.o. every 6 hours p.r.n. LABORATORY DATA: Includes as follows: WBC 7.1, hemoglobin 10.7, hematocrit 31.8, platelets 310. Sodium 136, potassium 4.5, chloride 107, CO2 of 19, BUN 44, creatinine 4.3, glucose 86, calcium is 12. Accu-Cheks 140 and 94. PSA 5.72. PT 11.4, PTT 32.5. Parathyroid scan, no evidence of parathyroid adenoma. ASSESSMENT: In summary, Mr. Portillo is a 67-year-old male with hypertension, diabetes, chronic kidney disease with bilateral small contracted kidneys with hypercalcemia, was taking vitamin D 10,000 units daily for the last four to five months with vitamin D level more than 126. 1. Acute renal failure on chronic kidney disease, most likely secondary to intravascular volume depletion secondary to hypercalcemia. 2. Hypercalcemia secondary to vitamin D intoxication. 3. Hypertension. 4. Diabetes. PLAN: Continue IV fluids normal saline at 150 mL/hour and also we will give calcitonin 200 international units intranasal x1 dose today again. Continue to monitor BMP in a.m. We will follow with you. Thank you for allowing me to participate in your patient's care. Yamel Casillas MD
[2018-03-11 06:03] LABS: HEMOGLOBIN 10.9 g/dL (12.0-18.0); MEAN CELL VOLUME 88.4 fl (80.0-94.0); MEAN CORPUSCULAR HEMOGLOBIN 29.4 pg (27.0-31.0); MEAN CORPUSCULAR HGB CONC 33.2 g/dL (33.0-37.0); RBC 3.7 Mil/uL (4.40-5.90); RED CELL DISTRIBUTION WIDTH 16.7 % (11.5-14.5); WHITE BLOOD COUNT 8.5 K/uL (4.8-10.8)
[2018-03-11 06:38] LABS: CALCIUM 12.5 mg/dL (8.4-10.2)
[2018-03-11] MEDS: Insulin Regular 100 units/ml SC SCH ×4 (07:23→22:04)
[2018-03-11] MEDS: Sevelamer Carb 0.8 gm/Packet PO SCH ×3 (08:13→16:36)
[2018-03-11 08:14] LABS: ALB/GLOB RATIO 1.3 (1.0-2.1); ALBUMIN 3.5 g/dL (3.5-5.0)
[2018-03-11] MEDS ORDERED: Lactated Ringer's 500 ML IV ONE (11:51)
[2018-03-11] MEDS ORDERED: Sodium Chloride 0.9% 1,000 ML IV ONE (11:57)
[2018-03-11] MEDS ORDERED: Etomidate 20 mg/10ml Inj IV ONE (12:28)
[2018-03-11] MEDS ORDERED: Midazolam 2 MG/2 ML VIAL ONE (12:29)
[2018-03-11] MEDS ORDERED: Propofol 10 mg/ml Inj (20 ML) ONE (12:29)
[2018-03-11] MEDS ORDERED: Sodium Chloride 0.9% 250 ML IV ONE (13:17)
--- NOTE | 2018-03-11 13:27 | CP.PCM.PN ---
Subjective - Date & Time of Evaluation Date of Evaluation: 03/11/18 Time of Evaluation: 13:27 - Subjective Subjective: S/P CYSTO WITH PROSTATE BX WORKUP FOR HYPERCALCEMIA IN PROGRESS NO NEW CLINICAL FINDINGS Objective - Vital Signs/Intake and Output Vital Signs (last 24 hours): Temp Pulse Resp BP Pulse Ox 98 F 79 11 L 112/50 L 100 03/11/18 13:10 03/11/18 13:10 03/11/18 13:10 03/11/18 13:10 03/11/18 13:10 Intake and Output: 03/11/18 03/11/18 06:59 18:59 Intake Total 70 Balance 70 - Medications Medications: Current Medications Acetaminophen (Tylenol 325mg Tab) 650 mg PO Q6 PRN PRN Reason: Headache Last Admin: 03/10/18 16:57 Dose: 650 mg Sodium Chloride (Sodium Chloride 0.9%) 1,000 mls @ 150 mls/hr IV .Q6H40M CASSANDRA Stop: 03/11/18 22:26 Last Admin: 03/11/18 08:19 Dose: Not Given Insulin Human Regular (Humulin R) 0 units SC ACHS CASSANDRA PRN Reason: Protocol Last Admin: 03/11/18 11:03 Dose: Not Given Lorazepam (Ativan) 0.5 mg PO HS PRN PRN Reason: Sleep Last Admin: 03/10/18 21:58 Dose: 0.5 mg Sevelamer Carbonate (Renvela) 0.8 gm PO TIDWM CASSANDRA Last Admin: 03/11/18 11:04 Dose: Not Given - Labs Labs: 03/11/18 05:50 03/11/18 05:50 PT 11.4 Seconds (9.8-13.1) 03/10/18 12:50 INR 1.0 (0.9-1.2) 03/10/18 12:50 APTT 32.5 Seconds (25.6-37.1) 03/10/18 12:50 Assessment and Plan - Assessment and Plan (Free Text) Assessment: HYPERCALCEMIA ACUTE ON CHRONIC RENAL FAILURE ELEVATED PSA ANEMIA Plan: CONTINUE IV HYDRATION AND MONITOR CALCIUM LEVELS
[2018-03-11 19:34] LABS: CALCIUM 11.9 mg/dL (8.4-10.2)
[2018-03-11] MEDS: Calcitonin 200 Int Units/Inh Nasal Spray (3.7 ml) NAS SCH (19:46)
--- NOTE | 2018-03-11 19:58 | CP.PCM.PN ---
Subjective - Date & Time of Evaluation Date of Evaluation: 03/11/18 Time of Evaluation: 19:57 - Subjective Subjective: pt is seen and examined, follow up consult is dictated #[id number] Objective - Vital Signs/Intake and Output Vital Signs (last 24 hours): Temp Pulse Resp BP Pulse Ox 98.5 F 85 20 136/74 98 03/11/18 16:06 03/11/18 16:06 03/11/18 16:06 03/11/18 16:06 03/11/18 16:06 Intake and Output: 03/11/18 03/12/18 18:59 06:59 Intake Total 70 Balance 70 - Medications Medications: Current Medications Acetaminophen (Tylenol 325mg Tab) 650 mg PO Q6 PRN PRN Reason: Headache Last Admin: 03/11/18 16:35 Dose: 650 mg Calcitonin [place] (Miacalcin) 200 intlu MARYANNE DAILY CASSANDRA Stop: 03/12/18 09:01 Last Admin: 03/11/18 19:46 Dose: 1 puff Sodium Chloride (Sodium Chloride 0.9%) 1,000 mls @ 150 mls/hr IV .Q6H40M CASSANDRA Stop: 03/11/18 22:26 Last Admin: 03/11/18 14:26 Dose: 150 mls/hr Insulin Human Regular (Humulin R) 0 units SC ACHS CASSANDRA PRN Reason: Protocol Last Admin: 03/11/18 16:39 Dose: Not Given Lorazepam (Ativan) 0.5 mg PO HS PRN PRN Reason: Sleep Last Admin: 03/10/18 21:58 Dose: 0.5 mg Sevelamer Carbonate (Renvela) 0.8 gm PO TIDWM CASSANDRA Last Admin: 03/11/18 16:36 Dose: 0.8 gm - Labs Labs: 03/11/18 05:50 03/11/18 19:10 PT 11.4 Seconds (9.8-13.1) 03/10/18 12:50 INR 1.0 (0.9-1.2) 03/10/18 12:50 APTT 32.5 Seconds (25.6-37.1) 03/10/18 12:50
--- NOTE | 2018-03-12 01:48 | PN ---
DATE: 03/11/2018 FOLLOWUP RENAL CONSULTATION LOCATION: The patient is located in room 669, bed 2. REQUESTED BY: Darwin Rangel MD REASON FOR FOLLOWUP: Acute renal failure on chronic kidney disease, hypercalcemia, and dehydration. SUBJECTIVE: Mr. Portillo is a 67-year-old elderly male with a past medical history significant for longstanding hypertension, diabetes, chronic kidney disease. He was taking vitamin D 10,000 units every day for the last four to five months. The patient was now found to have a calcium about 13.3 and back home and also creatinine of about 8.1 and advised the patient may need to undergo dialysis. The patient was seen by Dr. Rangel after coming back here. The patient was referred to emergency room for further evaluation. His calcium on admission was more than 13 and creatinine more than 5. The patient was started on IV fluids due to dehydration. The patient is on IV fluids normal saline at 150 mL per hour and also receiving calcitonin 200 international units daily in alternate nostril for the last two days. The patient is not in acute distress. Denies any headache or dizziness. Denies any chest pain or palpitation. Denies any fever or cough. No abdominal pain. No nausea, vomiting, or diarrhea. Questionable compliance with diet. PHYSICAL EXAMINATION: VITAL SIGNS: As follows: Blood pressure 136/74, pulse 85, respirations 20, temperature 98.5, saturation 98%. Height 5 feet 4 inches. Weight is 125 pounds. GENERAL: Mr. Portillo is a 67-year-old elderly male, moderately built, moderately nourished, not in distress. HEENT: Pupils are normal and reactive to light and accommodation. Conjunctivae pink. Sclerae anicteric. Tongue is moist. Trachea is midline. LUNGS: Symmetric on both sides. Bilateral breath sounds present. Clear to auscultation. CVS: [place] at the fifth intercostal space, midclavicular line. S1 and S2 audible. No murmur or gallop. ABDOMEN: Normal in appearance, soft, tympanic. No guarding. No rigidity. No hepatosplenomegaly. BOSOM PRESSER: The patient is alert, awake, and oriented x3. Nonfocal neuro examination. Cranial nerves II-XII grossly intact. Sensory and motor system is within normal limits. EXTREMITIES: No cyanosis, no clubbing, no edema. CURRENT MEDICATIONS: Include as follows: Ativan 0.5 mg p.o. at bedtime p.r.n., Humulin R per sliding scale, calcitonin 200 international units in alternate nostril , Renvela 800 mg p.o. t.i.d., IV fluids normal saline at 150 mL per hour, and Tylenol 650 mg p.o. every 6 hours p.r.n. LABORATORY DATA: Include as follows as of 03/09/2018: WBC 8.5, hemoglobin 10.9, hematocrit 32.7, platelets 319. Sodium 138, potassium 4.9, chloride 108, CO2 of 20, BUN 45, creatinine 4.3, glucose 89, calcium 12.5. Total bili 0.4, AST 27, ALT 37, alkaline phosphatase 80, total protein 6.3, albumin is 3.5. Sodium 140, potassium 4.7, chloride 108, CO2 of 23, BUN 48, creatinine 4.6, glucose 133, and calcium is 11.9. ASSESSMENT: In summary, Mr. Portillo is a 67-year-old elderly male with a history of hypertension, diabetes for about 12 years, chronic kidney disease with bilateral small contracted kidneys, on vitamin D supplement, self-medicated, who was admitted with hypercalcemia, dehydration, polyuria and also increased blood urea nitrogen and creatinine. 1. Acute renal failure on chronic kidney disease, most likely secondary to dehydration, secondary to hypercalcemia. 2. Hypercalcemia secondary to vitamin D intoxication. 3. Hypertension. Blood pressure is stable. 4. Diabetes. Sugars are under control. PLAN: Continue IV fluids normal saline at 150 mL per hour. Continue calcitonin 200 international units daily in alternate nostril. Repeat BMP in the a.m. Advised low calcium diet. Avoid milk and cheese products and dairy products at this time. Also, we will check serum free light chains and also UPEP and SPEP, less likely multiple myeloma, we will do to eliminate. Yamel Casillas MD
--- NOTE | 2018-03-12 04:18 | PN ---
DATE: 03/11/2018 ENDOCRINOLOGY FOLLOWUP NOTE LOCATION: Room 669. This is a 67-year-old male with recent admission with malignant hypercalcemia and dehydration with also concomitant acute renal failure on the background of underlying chronic kidney disease and is now being followed closely for metabolic management. He received vigorous IV hydration with remarkable improvement of his biochemical indices as noted. His latest chemistries showed a BUN of 48, sodium 140, potassium 4.7, chloride 108, CO2 of 23, glucose 133, and creatinine 4.6. His glucose values have ranged from 105 to 121 and 132 mg/dL. The latest calcium level is now 11.9 mg/dL as noted. His parathyroid hormone level was initially reported as 1 which excludes any endocrine related disorder such as primary versus secondary hyperparathyroidism as noted. However, he still has progressive renal insufficiency with advanced azotemia, and there could definitely be a factor of underlying secondary hyperparathyroidism contributing to the hypercalcemia. However, he also has concomitant vitamin D intoxication with an extremely elevated level of 25-hydroxy vitamin D over 126 which could have also contributed to the marked hypercalcemic accelerations as noted thereof. We will obtain serial chemistries and supplement accordingly as needed. We will also continue the Miacalcin given as a nasal spray as ordered. We will obtain serial chemistries and supplement accordingly as needed. We will also hold off on the initiation of any oral hypoglycemic therapy at this time. We will follow and obtain serial chemistries and supplement accordingly as needed. Valerie Nath MD
[2018-03-12] MEDS: Insulin Regular 100 units/ml SC SCH ×4 (06:38→22:11)
[2018-03-12 07:49] LABS: ALB/GLOB RATIO 1.3 (1.0-2.1); ALBUMIN 3.4 g/dL (3.5-5.0); CALCIUM 11.4 mg/dL (8.4-10.2)
[2018-03-12] MEDS: Sevelamer Carb 0.8 gm/Packet PO SCH ×3 (08:40→16:32)
[2018-03-12] MEDS: Calcitonin 200 Int Units/Inh Nasal Spray (3.7 ml) NAS SCH (08:42)
--- NOTE | 2018-03-12 11:29 | CP.PCM.PN ---
Subjective - Date & Time of Evaluation Date of Evaluation: 03/12/18 Time of Evaluation: 11:30 - Subjective Subjective: NO APPARENT DISTRESS VSS Objective - Vital Signs/Intake and Output Vital Signs (last 24 hours): Temp Pulse Resp BP Pulse Ox 98.3 F 91 H 20 149/71 99 03/12/18 08:09 03/12/18 08:09 03/12/18 08:09 03/12/18 08:09 03/12/18 08:09 - Medications Medications: Current Medications Acetaminophen (Tylenol 325mg Tab) 650 mg PO Q6 PRN PRN Reason: Headache Last Admin: 03/11/18 16:35 Dose: 650 mg Insulin Human Regular (Humulin R) 0 units SC ACHS CASSANDRA PRN Reason: Protocol Last Admin: 03/12/18 06:38 Dose: Not Given Lorazepam (Ativan) 0.5 mg PO HS PRN PRN Reason: Sleep Last Admin: 03/11/18 22:07 Dose: 0.5 mg Sevelamer Carbonate (Renvela) 0.8 gm PO TIDWM CASSANDRA Last Admin: 03/12/18 08:40 Dose: 0.8 gm - Labs Labs: 03/11/18 05:50 03/12/18 05:20 PT 11.4 Seconds (9.8-13.1) 03/10/18 12:50 INR 1.0 (0.9-1.2) 03/10/18 12:50 APTT 32.5 Seconds (25.6-37.1) 03/10/18 12:50 - Constitutional Appears: No Acute Distress - Head Exam Head Exam: ATRAUMATIC, NORMAL INSPECTION, NORMOCEPHALIC - Eye Exam Eye Exam: EOMI, Normal appearance, PERRL Pupil Exam: NORMAL ACCOMODATION, PERRL - ENT Exam ENT Exam: Mucous Membranes Moist, Normal Exam - Neck Exam Neck Exam: Full ROM, Normal Inspection. absent: Lymphadenopathy - Respiratory Exam Respiratory Exam: Clear to Ausculation Bilateral, NORMAL BREATHING PATTERN - Cardiovascular Exam Cardiovascular Exam: REGULAR RHYTHM, +S1, +S2. absent: Murmur - GI/Abdominal Exam GI & Abdominal Exam: Soft, Normal Bowel Sounds. absent: Tenderness - Rectal Exam Rectal Exam: NORMAL INSPECTION - Extremities Exam Extremities Exam: Full ROM, Normal Capillary Refill, Normal Inspection. absent : Joint Swelling, Pedal Edema - Back Exam Back Exam: NORMAL INSPECTION - Neurological Exam Neurological Exam: Alert, Awake, CN II-XII Intact, Normal Gait, Oriented x3 - Psychiatric Exam Psychiatric exam: Normal Affect, Normal Mood - Skin Skin Exam: Dry, Intact, Normal Color, Warm Assessment and Plan - Assessment and Plan (Free Text) Assessment: HYPERCALCEMIA--IMPROVING VIT D INTOXICATION ACUTE ON CHRONIC RENAL FAILURE DM TYPE 2--CONTROLLED OFF MEDS ANEMIA ELEVATED PSA--R/O MALIGNANCY/BPH Plan: CONTINUE CURRENT THERAPY
[2018-03-12] MEDS: Pantoprazole 40 mg EC Tab PO SCH (13:57)
--- NOTE | 2018-03-12 14:08 | CP.PCM.PN ---
Subjective - Date & Time of Evaluation Date of Evaluation: 03/12/18 Time of Evaluation: 14:07 - Subjective Subjective: pt is seen and examined, follow up consult is dictated#[id number] check bmp in am c/w icf ns at 150 ml/hr Objective - Vital Signs/Intake and Output Vital Signs (last 24 hours): Temp Pulse Resp BP Pulse Ox 98.3 F 91 H 20 149/71 99 03/12/18 08:09 03/12/18 08:09 03/12/18 08:09 03/12/18 08:09 03/12/18 08:09 - Medications Medications: Current Medications Acetaminophen (Tylenol 325mg Tab) 650 mg PO Q6 PRN PRN Reason: Headache Last Admin: 03/11/18 16:35 Dose: 650 mg Insulin Human Regular (Humulin R) 0 units SC ACHS [facility] PRN Reason: Protocol Last Admin: 03/12/18 06:38 Dose: Not Given Lorazepam (Ativan) 1 mg PO HS PRN PRN Reason: Sleep Pantoprazole Sodium (Protonix Ec Tab) 40 mg PO DAILY [facility] Last Admin: 03/12/18 13:57 Dose: 40 mg Sevelamer Carbonate (Renvela) 0.8 gm PO TIDWM [facility] Last Admin: 03/12/18 12:58 Dose: 0.8 gm - Labs Labs: 03/11/18 05:50 03/12/18 05:20 PT 11.4 Seconds (9.8-13.1) 03/10/18 12:50 INR 1.0 (0.9-1.2) 03/10/18 12:50 APTT 32.5 Seconds (25.6-37.1) 03/10/18 12:50
--- NOTE | 2018-03-12 15:52 | PN ---
DATE: 03/12/2018 ENDO FOLLOWUP NOTE LOCATION: Room 669. SUBJECTIVE: This is a 67-year-old male with recent malignant hypercalcemia and dehydration and has been admitted for closer metabolic and endocrine workup at this time. He also has underlying progressive renal insufficiency with advanced azotemia and chronic kidney disease as noted. LABORATORY DATA: His chemistries today showed a BUN of 46, sodium 137, potassium 4.7, chloride 108, CO2 20, glucose 88, and creatinine 4.3. His glucose levels have ranged from 99 to 132 mg/dL. His calcium level now is 11.4 with an albumin level of 3.4 and a corrected calcium of 12 mg/dL. His parathyroid hormone levels were actually reported as normal, excluding the possibility of primary hyperparathyroidism as noted. However, with the progressive renal insufficiency and advanced azotemia, he most likely also has secondary hyperparathyroidism with recent vitamin D intoxication contributing to the marked hypercalcemic accelerations as noted thereof. PLAN OF MANAGEMENT: We will continue the Miacalcin nasal spray as given, and we highly recommend a closer renal or nephrology followup regarding the advanced azotemia and underlying chronic kidney disease. We will strongly advise him not to go back on the vitamin D oral supplements that he was taking at home, and he was apparently using 10,000 units of vitamin D3 on the outpatient. We will obtain serial chemistries and supplement accordingly as needed. We will follow. Valerie Nath MD
[2018-03-13 07:12] LABS: CALCIUM 12.1 mg/dL (8.4-10.2)
[2018-03-13] MEDS: Insulin Regular 100 units/ml SC SCH ×4 (07:31→23:10)
[2018-03-13] MEDS: Sevelamer Carb 0.8 gm/Packet PO SCH ×3 (08:11→17:27)
[2018-03-13] MEDS: Pantoprazole 40 mg EC Tab PO SCH (08:11)
--- NOTE | 2018-03-13 11:14 | CP.PCM.PN ---
Subjective - Date & Time of Evaluation Date of Evaluation: 03/13/18 Time of Evaluation: 11:14 - Subjective Subjective: NO COMPLAINTS/DISTRESS BP STILL ELEVATED Objective - Vital Signs/Intake and Output Vital Signs (last 24 hours): Temp Pulse Resp BP Pulse Ox 98.4 F 96 H 20 176/77 H 100 03/13/18 08:02 03/13/18 08:02 03/13/18 08:02 03/13/18 08:02 03/13/18 08:02 - Medications Medications: Current Medications Acetaminophen (Tylenol 325mg Tab) 650 mg PO Q6 PRN PRN Reason: Headache Last Admin: 03/11/18 16:35 Dose: 650 mg Insulin Human Regular (Humulin R) 0 units SC ACHS [facility] PRN Reason: Protocol Last Admin: 03/13/18 07:31 Dose: Not Given Lorazepam (Ativan) 1 mg PO HS PRN PRN Reason: Sleep Last Admin: 03/12/18 22:05 Dose: 1 mg Pantoprazole Sodium (Protonix Ec Tab) 40 mg PO DAILY [facility] Last Admin: 03/13/18 08:11 Dose: 40 mg Sevelamer Carbonate (Renvela) 0.8 gm PO TIDWM [facility] Last Admin: 03/13/18 08:11 Dose: 0.8 gm - Labs Labs: 03/11/18 05:50 03/13/18 05:20 PT 11.4 Seconds (9.8-13.1) 03/10/18 12:50 INR 1.0 (0.9-1.2) 03/10/18 12:50 APTT 32.5 Seconds (25.6-37.1) 03/10/18 12:50 - Constitutional Appears: No Acute Distress - Head Exam Head Exam: ATRAUMATIC, NORMAL INSPECTION, NORMOCEPHALIC - Eye Exam Eye Exam: EOMI, Normal appearance, PERRL Pupil Exam: NORMAL ACCOMODATION, PERRL - ENT Exam ENT Exam: Mucous Membranes Moist, Normal Exam - Neck Exam Neck Exam: Full ROM, Normal Inspection. absent: Lymphadenopathy - Respiratory Exam Respiratory Exam: Clear to Ausculation Bilateral, NORMAL BREATHING PATTERN - Cardiovascular Exam Cardiovascular Exam: REGULAR RHYTHM, +S1, +S2. absent: Murmur - GI/Abdominal Exam GI & Abdominal Exam: Soft, Normal Bowel Sounds. absent: Tenderness - Rectal Exam Rectal Exam: NORMAL INSPECTION - Extremities Exam Extremities Exam: Full ROM, Normal Capillary Refill, Normal Inspection. absent : Joint Swelling, Pedal Edema - Back Exam Back Exam: NORMAL INSPECTION - Neurological Exam Neurological Exam: Alert, Awake, CN II-XII Intact, Normal Gait, Oriented x3 - Psychiatric Exam Psychiatric exam: Normal Affect, Normal Mood - Skin Skin Exam: Dry, Intact, Normal Color, Warm Assessment and Plan - Assessment and Plan (Free Text) Assessment: VITAMIN D TOXICITY HYPERCALCEMIA ACUTE ON CHRONIC KIDNEY DZ DIABETES CONTROLLED BY DIET BPH--R/O MALIGNANCY HYPERTENSION Plan: CONTINUE IV HYDRATION BEGIN ANTIHYPERTENSIVE RX AWAIT PROSTATE BX RESULTS
--- NOTE | 2018-03-13 16:20 | PN ---
DATE: 03/13/2018 ENDO FOLLOWUP NOTE LOCATION: Room 669. SUBJECTIVE: This is a 67-year-old male with recent admission for malignant hypercalcemia with underlying progressive renal insufficiency and advanced azotemia with underlying chronic kidney disease and is now being followed closely for metabolic management. His calcium levels are fluctuating but improved, and the latest calcium level has stabilized at 12.1 mg/dL. His latest chemistry showed a BUN of 44, sodium 139, potassium 5, chloride 106, CO2 22, glucose 101, and creatinine 4.2. His glucose values have stabilize at 90 to 132 mg/dL. More indication at this time for the resumption of his oral hypoglycemic therapy for now. We will continue the serial chemistries and supplement accordingly as needed. He indeed has to follow with Nephrology for outpatient closer evaluation and management of underlying progressive renal insufficiency. He has been advised also not to restart his vitamin D supplementation because of recent vitamin D intoxication as noted. We will obtain serial chemistries and supplement accordingly as needed. We will follow. Valerie Nath MD
[2018-03-13] MEDS: Calcitonin 200 Int Units/Inh Nasal Spray (3.7 ml) NAS SCH (17:26)
[2018-03-13] MEDS: Sodium Chloride 0.9% 1,000 ML IV SCH (18:17)
--- NOTE | 2018-03-13 19:00 | CP.PCM.PN ---
Subjective - Date & Time of Evaluation Date of Evaluation: 03/13/18 Time of Evaluation: 19:00 - Subjective Subjective: pt is seen and exAmined, follow up consult is dictated #[id number] Objective - Vital Signs/Intake and Output Vital Signs (last 24 hours): Temp Pulse Resp BP Pulse Ox 98.1 F 89 18 132/72 100 03/13/18 17:00 03/13/18 17:00 03/13/18 17:00 03/13/18 17:00 03/13/18 17:00 - Medications Medications: Current Medications Acetaminophen (Tylenol 325mg Tab) 650 mg PO Q6 PRN PRN Reason: Headache Last Admin: 03/13/18 18:18 Dose: 650 mg Amlodipine Besylate (Norvasc) 2.5 mg PO DAILY [facility] Last Admin: 03/13/18 12:09 Dose: 2.5 mg Calcitonin [place] (Miacalcin) 200 intlu MARYANNE DAILY [facility] Last Admin: 03/13/18 17:26 Dose: 1 spr Sodium Chloride (Sodium Chloride 0.9%) 1,000 mls @ 150 mls/hr IV .Q6H40M [facility] Stop: 03/14/18 17:40 Last Admin: 03/13/18 18:17 Dose: 150 mls/hr Insulin Human Regular (Humulin R) 0 units SC ACHS [facility]ANDRA PRN Reason: Protocol Last Admin: 03/13/18 17:21 Dose: Not Given Lorazepam (Ativan) 1 mg PO HS PRN PRN Reason: Sleep Last Admin: 03/12/18 22:05 Dose: 1 mg Pantoprazole Sodium (Protonix Ec Tab) 40 mg PO DAILY [facility] Last Admin: 03/13/18 08:11 Dose: 40 mg Sevelamer Carbonate (Renvela) 0.8 gm PO TIDWM [facility] Last Admin: 03/13/18 17:27 Dose: 0.8 gm - Labs Labs: 03/11/18 05:50 03/13/18 05:20 PT 11.4 Seconds (9.8-13.1) 03/10/18 12:50 INR 1.0 (0.9-1.2) 03/10/18 12:50 APTT 32.5 Seconds (25.6-37.1) 03/10/18 12:50
[2018-03-14] MEDS: Sodium Chloride 0.9% 1,000 ML IV SCH ×4 (00:27→13:55)
[2018-03-14 07:21] LABS: ALB/GLOB RATIO 1.2 (1.0-2.1); ALBUMIN 3.6 g/dL (3.5-5.0); CALCIUM 11.7 mg/dL (8.4-10.2)
[2018-03-14] MEDS: Insulin Regular 100 units/ml SC SCH ×4 (07:29→22:30)
[2018-03-14] MEDS: Sevelamer Carb 0.8 gm/Packet PO SCH ×3 (08:05→17:51)
[2018-03-14] MEDS: Pantoprazole 40 mg EC Tab PO SCH (08:05)
[2018-03-14] MEDS: Calcitonin 200 Int Units/Inh Nasal Spray (3.7 ml) NAS SCH (08:06)
--- NOTE | 2018-03-14 08:52 | PN ---
DATE: 03/12/2018 FOLLOWUP RENAL CONSULTATION LOCATION: The patient is located in room 669, bed 2. REQUESTED BY: Darwin Rangel MD REASON FOR FOLLOWUP: Acute renal failure, chronic kidney disease, hypercalcemia, dehydration. SUBJECTIVE: The patient is a 67-year-old elderly male with a history of diabetes type 2, hypertension for about 12 years, chronic kidney disease, who was found to have abnormal BUN and creatinine back at home, and also hypercalcemia. Subsequently, the patient traveled to [place] and was seen by Dr. Rangel. The patient was referred to the emergency room initially for further evaluation and found to have a creatinine more than 5, and calcium more than 13, and started on IV fluids with normal saline at 150 mL/hour. The patient is feeling much better, not in acute distress. Denies any headache, or dizziness. Denies any chest pain or palpitation. Denies any fever or cough. No abdominal pain. No nausea, vomiting, or diarrhea. CURRENT MEDICATIONS: Include as follows: Aspirin 81 mg p.o. at bedtime p.r.n., Humulin R for sliding scale, Protonix 40 mg p.o. daily, Renvela 800 mg p.o. t.i.d., Tylenol 650 mg p.o. every 6 hours p.r.n. PHYSICAL EXAMINATION: GENERAL: The patient is a 67-year-old elderly male, moderately built, moderately nourished, not in distress. VITAL SIGNS: Blood pressure this morning 149/71 pulse 91, respirations 20, temperature 98.3, saturation 99%. Height 5 feet 4 inches, weight is 125 pounds. HEENT: Pupils normal and reactive to light and accommodation. Conjunctivae pink. Sclerae anicteric. Tongue is moist. NECK: Trachea is midline. LUNGS: Symmetric on both sides. Bilateral breath sounds present. Clear to auscultation. CVS: [place] at the fifth intercostal space, midclavicular line. S1, S2 audible. No murmur or gallop. ABDOMEN: Normal in appearance, soft, tympanic. No guarding. No rigidity. No hepatosplenomegaly. ALPINE GUIDE: The patient is alert, awake, and oriented x3. Nonfocal neuro examination. Cranial nerves II through XII grossly intact. Sensory and motor system are within normal limits. EXTREMITIES: No cyanosis, no clubbing, no edema. LABORATORY DATA: Include as follows: As of 03/12/2018, sodium 137, potassium 4.7, chloride 108, CO2 20, BUN 46, creatinine 4.3, glucose 88, calcium 11.4, and phosphorus 4.8. Total bili 0.3, AST 26, ALT 31, alkaline phosphatase 65, and total protein 6, albumin is 3.4, and globulin 2.6. ASSESSMENT AND PLAN: In summary, the patient is a 67-year-old elderly male with hypertension, diabetes, chronic kidney disease, on vitamin D 10,000 units daily for the last 4 or 5 months, was admitted with hypercalcemia, renal failure, decreased skin turgor, and polyuria. 1. Acute renal failure on chronic kidney disease, most likely secondary to intravascular volume depletion secondary to dehydration secondary to polyuria and hypercalcemia. 2. Hypercalcemia secondary to vitamin D intoxication. 3. Hypertension. 4. Diabetes. 5. Chronic kidney disease, most likely secondary to hypertensive nephrosclerosis, renal function is slowly improving. This may be close to his baseline between 3 to 4. PLAN: Continue IV fluids with normal saline at 150 mL/hour and the patient was given calcitonin 200 International Units in one nostril this morning. Continue to monitor the calcium and BMP. We will follow with you. Thank you for allowing me to participate in your patient's care. Yamel Casillas MD
--- NOTE | 2018-03-14 08:53 | PN ---
DATE: 03/13/2018 FOLLOWUP RENAL CONSULTATION LOCATION: Room 669, bed 2 REQUESTED BY: Darwin Rangel MD HISTORY OF PRESENT ILLNESS: The patient is a 67-year-old elderly male with a past medical history significant for longstanding hypertension, diabetes, chronic kidney disease and taking vitamin D 10,000 units daily, self-medicated for about 3-4 months, was admitted with increased BUN and creatinine and hypercalcemia. The patient is being treated with Miacalcin and also IV fluids. Still the calcium is high. The patient is not in acute distress and denies any headache, dizziness. Denies any chest pain or palpitation. Denies any fever or cough. No abdominal pain. No nausea, vomiting, or diarrhea. PHYSICAL EXAMINATION: VITAL SIGNS: As follows: Blood pressure 132/72, pulse 89, respirations 18, temperature 98.1, saturation 100%. Height 5 feet 4 inches and weight is 125 pounds. GENERAL: The patient is a 67-year-old elderly male, moderately built, moderately nourished, not in distress. HEENT: Pupils normally reactive to light and accommodation. Conjunctivae pink. Sclerae anicteric. Tongue is moist and trachea is midline. LUNGS: Symmetric on both sides. Bilateral breath sounds present. Clear to auscultation. CVS: [place] at the fifth intercostal space midclavicular line. S1 and S2 audible. No murmur, rub, or gallop. ABDOMEN: Normal in appearance, soft, tympanic. No guarding. No rigidity. No hepatosplenomegaly. SURGERY SCHEDULER: The patient is alert, awake, oriented x3. Nonfocal neuro examination. Cranial nerves II-XII grossly intact. Sensory and motor system within normal limits. EXTREMITIES: No cyanosis, no clubbing, no edema. His current medications include as follows: Ativan 1 mg p.o. at bedtime p.r.n., Humulin R for sliding scale, Miacalcin 200 International Units alternate nostril daily, amlodipine 2.5 mg daily, Protonix 40 mg p.o. daily, Renvela 800 mg p.o. t.i.d., IV fluids, normal saline at 150 mL/hour, and Tylenol. His laboratory data include as follows: As of 03/13/2018, sodium 139, potassium is 5, chloride 106, CO2 22, BUN 44, creatinine 4.2, glucose 101, calcium 12.1. ASSESSMENT AND PLAN: In summary, the patient is a 67-year-old male with hypertension, diabetes, chronic kidney disease with vitamin D intoxication due to self-medication and hypercalcemia, increased BUN and creatinine. 1. Acute renal failure on chronic kidney disease most likely secondary to intravascular depletion secondary to hypercalcemia. 2. Hypercalcemia secondary to vitamin D intoxication. 3. Hypertension. Blood pressure is stable. Continue Norvasc 2.5 mg and titrate as needed. 4. Diabetes. Sugars are under control. 5. Elevated PSA level, rule out benign prostatic hypertrophy versus rule out prostate cancer. PLAN: 1. Continue calcitonin 200 International Units intravenously daily until calcium level improves. 2. Repeat BMP and calcium level daily and consider Endocrinology evaluation. We may consider the patient will discuss with Endocrinology or may need Hematology evaluation for the patient. We will follow with you. Thank you for allowing me to participate in your patient's care. Avoid dairy products and also we will check HTLV-I and II antibody. Yamel Casillas MD
--- NOTE | 2018-03-14 09:44 | CP.PCM.PN ---
Subjective - Date & Time of Evaluation Date of Evaluation: 03/14/18 Time of Evaluation: 09:46 - Subjective Subjective: NO APPARENT DISTRESS CONTINUES TO ASK FOR MORE VITAMINS AND SUPPLEMENTS TAKES THERAFLU AND TEA EVERY MORNING ALSO TAKES VIT D AND PROTEIN SUPPLEMENTS FOR ENERGY DAILY Objective - Vital Signs/Intake and Output Vital Signs (last 24 hours): Temp Pulse Resp BP Pulse Ox 97.9 F 80 20 163/75 H 99 03/14/18 08:14 03/14/18 08:14 03/14/18 08:14 03/14/18 08:14 03/14/18 08:14 - Medications Medications: Current Medications Acetaminophen (Tylenol 325mg Tab) 650 mg PO Q6 PRN PRN Reason: Headache Last Admin: 03/14/18 00:25 Dose: 650 mg Amlodipine Besylate (Norvasc) 2.5 mg PO DAILY [facility] Last Admin: 03/14/18 08:07 Dose: 2.5 mg Calcitonin [place] (Miacalcin) 200 intlu MARYANNE DAILY [facility] Last Admin: 03/14/18 08:06 Dose: 1 spr Sodium Chloride (Sodium Chloride 0.9%) 1,000 mls @ 150 mls/hr IV .Q6H40M [facility] Stop: 03/14/18 17:40 Last Admin: 03/14/18 07:05 Dose: Not Given Insulin Human Regular (Humulin R) 0 units SC ACHS [facility]ANDRA PRN Reason: Protocol Last Admin: 03/14/18 07:29 Dose: Not Given Lorazepam (Ativan) 1 mg PO HS PRN PRN Reason: Sleep Last Admin: 03/13/18 23:05 Dose: 1 mg Pantoprazole Sodium (Protonix Ec Tab) 40 mg PO DAILY [facility] Last Admin: 03/14/18 08:05 Dose: 40 mg Sevelamer Carbonate (Renvela) 0.8 gm PO TIDWM [facility] Last Admin: 03/14/18 08:05 Dose: 0.8 gm - Labs Labs: 03/11/18 05:50 03/14/18 06:20 PT 11.4 Seconds (9.8-13.1) 03/10/18 12:50 INR 1.0 (0.9-1.2) 03/10/18 12:50 APTT 32.5 Seconds (25.6-37.1) 07/26/18 12:50 - Constitutional Appears: No Acute Distress - Head Exam Head Exam: ATRAUMATIC, NORMAL INSPECTION, NORMOCEPHALIC - Eye Exam Eye Exam: EOMI, Normal appearance, PERRL Pupil Exam: NORMAL ACCOMODATION, PERRL - ENT Exam ENT Exam: Mucous Membranes Moist, Normal Exam - Neck Exam Neck Exam: Full ROM, Normal Inspection. absent: Lymphadenopathy - Respiratory Exam Respiratory Exam: Clear to Ausculation Bilateral, NORMAL BREATHING PATTERN - Cardiovascular Exam Cardiovascular Exam: REGULAR RHYTHM, +S1, +S2. absent: Murmur - GI/Abdominal Exam GI & Abdominal Exam: Soft, Normal Bowel Sounds. absent: Tenderness - Rectal Exam Rectal Exam: NORMAL INSPECTION - Extremities Exam Extremities Exam: Full ROM, Normal Capillary Refill, Normal Inspection. absent : Joint Swelling, Pedal Edema - Back Exam Back Exam: NORMAL INSPECTION - Neurological Exam Neurological Exam: Alert, Awake, CN II-XII Intact, Normal Gait, Oriented x3 - Psychiatric Exam Psychiatric exam: Normal Affect, Normal Mood - Skin Skin Exam: Dry, Intact, Normal Color, Warm Assessment and Plan - Assessment and Plan (Free Text) Assessment: ACUTE ON CHRONIC RENAL FAILURE DM HTN VIT D INTOXICATION MULTIPLE SUBSTANCE USE--SUPPLEMENTS ANEMIA HYPERCALCEMIA Plan: CONTINUE CURRENT RX ASSURANCE SOURCING MANAGER FOR D/C PLANNING FOR AM
--- NOTE | 2018-03-14 11:19 | US ---
Date of service: 03/11/2018 PROCEDURE: Ultrasound-directed prostate biopsy HISTORY: COMPARISON: None TECHNIQUE: Standard protocol for this study/examination. FINDINGS: Multiple prostate biopsies were performed under ultrasound guidance. Calculated prostate volume: 38.52 ml. Corresponding PPSA 4.62 IMPRESSION: Ultrasound-directed transrectal prostate biopsy.
--- NOTE | 2018-03-14 19:04 | CP.PCM.PN ---
Subjective - Date & Time of Evaluation Date of Evaluation: 03/14/18 Time of Evaluation: 19:02 - Subjective Subjective: pt is seen and examined, follow up consult is dictated#[id number] Objective - Vital Signs/Intake and Output Vital Signs (last 24 hours): Temp Pulse Resp BP Pulse Ox 98.4 F 92 H 20 167/70 H 100 03/14/18 16:46 03/14/18 16:46 03/14/18 16:46 03/14/18 16:46 03/14/18 16:46 - Medications Medications: Current Medications Acetaminophen (Tylenol 325mg Tab) 650 mg PO Q6 PRN PRN Reason: Headache Last Admin: 03/14/18 00:25 Dose: 650 mg Amlodipine Besylate (Norvasc) 2.5 mg PO DAILY [facility] Last Admin: 03/14/18 08:07 Dose: 2.5 mg Calcitonin [place] (Miacalcin) 200 intlu MARYANNE DAILY [facility] Last Admin: 03/14/18 08:06 Dose: 1 spr Glipizide (Glucotrol) 2.5 mg PO ACB [facility] Last Admin: 03/14/18 11:54 Dose: Not Given Insulin Human Regular (Humulin R) 0 units SC ACHS [facility]ANDRA PRN Reason: Protocol Last Admin: 03/14/18 16:52 Dose: Not Given Lorazepam (Ativan) 1 mg PO HS PRN PRN Reason: Sleep Last Admin: 03/13/18 23:05 Dose: 1 mg Pantoprazole Sodium (Protonix Ec Tab) 40 mg PO DAILY [facility] Last Admin: 03/14/18 08:05 Dose: 40 mg Sevelamer Carbonate (Renvela) 0.8 gm PO TIDWM [facility] Last Admin: 03/14/18 17:51 Dose: 0.8 gm - Labs Labs: 03/11/18 05:50 03/14/18 06:20 PT 11.4 Seconds (9.8-13.1) 03/10/18 12:50 INR 1.0 (0.9-1.2) 03/10/18 12:50 APTT 32.5 Seconds (25.6-37.1) 03/10/18 12:50
--- NOTE | 2018-03-14 22:30 | PN ---
DATE: 03/14/2018 ENDO FOLLOWUP LOCATION: Room 669. SUBJECTIVE: This is a 67-year-old male with initial presentation of malignant hypercalcemia with progressive renal insufficiency and is now being followed closely for metabolic management. His calcium levels have remarkably improved with the initial IV hydration as given. His latest glucose values have also improved without any need for any oral hypoglycemic therapy as given. His glucose levels have ranged from 82 to 139 and 153 mg/dL. His latest chemistries showed a BUN of 43, sodium 140, potassium 4.7, chloride 110, CO2 20, glucose 96, and creatinine 4.3. So at this time, we will continue the Miacalcin nasal spray as given. Moreover, we will also highly recommend a subsequent outpatient close followup with Nephrology for management of his ongoing and advanced azotemia and progressive renal insufficiency with underlying chronic kidney disease. His parathyroid hormone levels were reported as normal, excluding the possibility of underlying primary hyperparathyroidism causing the hypercalcemia at this time. We will follow. Valerie Nath MD
--- NOTE | 2018-03-15 03:01 | PN ---
DATE: 03/14/2018 FOLLOWUP RENAL CONSULTATION LOCATION: The patient is located in room 669, bed 2. REQUESTED BY: Darwin Rangel MD SUBJECTIVE: Mr. Portillo is a 67-year-old elderly male with a past medical history significant for longstanding hypertension, diabetes, chronic kidney disease, on vitamin D supplement, self-medicated, who was admitted with worsening renal function and weakness and polyuria and found to have a worsening renal function and calcium more than 13.3 and also creatinine more than 5. He was started on IV fluids and calcitonin. The patient is feeling slightly better, not in acute distress. Denies any complaints. PHYSICAL EXAMINATION: VITAL SIGNS: As follows: Blood pressure 167/70, pulse 92, respirations 20, temperature 98.4, saturation 100%. Height 5 feet 4 inches. Weight 125 pounds. GENERAL: Mr. Portillo is a 67-year-old male, moderately built, moderately nourished, not in acute distress. HEENT: Pupils are normal and reactive to light and accommodation. Conjunctivae are pink. Sclerae are anicteric. Tongue is moist. Trachea is midline. LUNGS: Symmetric on both sides. Bilateral breath sounds present. Clear to auscultation. CVS: [place] at the fifth intercostal space, midclavicular line. S1, S2 audible. No murmur or gallop. ABDOMEN: Normal in appearance, soft, tympanic. No guarding. No rigidity. No hepatosplenomegaly. DIE FORGER: The patient is alert, awake, and oriented x3. Nonfocal neuro examination. Cranial nerves II-XII grossly intact. Sensory and motor system is within normal limits. EXTREMITIES: No cyanosis, no clubbing, and no edema. CURRENT MEDICATIONS: Include as follows: Ativan 1 mg p.o. at bedtime, glipizide 2.5 mg p.o. before breakfast, Humulin R per sliding scale, Miacalcin 200 international units in alternate nostril daily, amlodipine 2.5 mg daily, Protonix 40 mg p.o. daily, Renvela 800 mg p.o. t.i.d., and Tylenol. LABORATORY DATA: Includes as follows: Sodium 140, potassium 4.7, chloride 110, CO2 of 20, BUN 43, creatinine 4.3, and glucose 96. Hemoglobin A1c 5.2. Calcium 11.7. Total bili 0.4, AST 30, ALT 29, alkaline phosphatase 86, total protein 6.6, and albumin is 3.6. ASSESSMENT: In summary, Mr. Portillo is a 67-year-old elderly male with hypertension, diabetes, chronic kidney disease, with increased blood urea nitrogen and creatinine and increased calcium on vitamin D supplement prior to the admission and elevated vitamin D levels on admission. 1. Hypercalcemia, most likely secondary to vitamin D intoxication secondary to self medication. 2. Acute renal failure on chronic kidney disease. 3. Hypertension. 4. Diabetes. Low parathyroid hormone secondary to hypercalcemia. PLAN: Continue IV fluids normal saline at 150 mL/hour. Continue Miacalcin 200 international units in alternate nostril daily and repeat BMP and calcium level in a.m. Thank you for allowing me to participate in your patient's care. Yamel Casillas MD
[2018-03-15] MEDS: Insulin Regular 100 units/ml SC SCH ×4 (06:54→23:00)
[2018-03-15] MEDS: Calcitonin 200 Int Units/Inh Nasal Spray (3.7 ml) NAS SCH (08:11)
[2018-03-15] MEDS: Pantoprazole 40 mg EC Tab PO SCH (08:12)
[2018-03-15] MEDS: Sevelamer Carb 0.8 gm/Packet PO SCH ×3 (08:12→16:53)
--- NOTE | 2018-03-15 08:37 | CP.PCM.PN ---
Subjective - Date & Time of Evaluation Date of Evaluation: 03/15/18 Time of Evaluation: 08:40 - Subjective Subjective: clinically unchanged no new clinical findings Objective - Vital Signs/Intake and Output Vital Signs (last 24 hours): Temp Pulse Resp BP Pulse Ox 98.5 F 90 18 154/74 H 100 03/15/18 00:04 03/15/18 08:13 03/15/18 00:04 03/15/18 08:13 03/15/18 00:04 - Medications Medications: Current Medications Acetaminophen (Tylenol 325mg Tab) 650 mg PO Q6 PRN PRN Reason: Headache Last Admin: 03/14/18 00:25 Dose: 650 mg Amlodipine Besylate (Norvasc) 2.5 mg PO DAILY [facility] Last Admin: 03/15/18 08:13 Dose: 2.5 mg Calcitonin [place] (Miacalcin) 200 intlu MARYANNE DAILY [facility] Last Admin: 03/15/18 08:11 Dose: 1 spr Glipizide (Glucotrol) 2.5 mg PO ACB [facility] Last Admin: 03/15/18 08:13 Dose: 2.5 mg Insulin Human Regular (Humulin R) 0 units SC ACHS [facility] PRN Reason: Protocol Last Admin: 03/15/18 06:54 Dose: Not Given Lorazepam (Ativan) 1 mg PO HS PRN PRN Reason: Sleep Last Admin: 03/14/18 23:05 Dose: 1 mg Pantoprazole Sodium (Protonix Ec Tab) 40 mg PO DAILY [facility] Last Admin: 03/15/18 08:12 Dose: 40 mg Sevelamer Carbonate (Renvela) 0.8 gm PO TIDWM [facility] Last Admin: 03/15/18 08:12 Dose: 0.8 gm - Labs Labs: 03/11/18 05:50 03/15/18 06:00 PT 11.4 Seconds (9.8-13.1) 03/10/18 12:50 INR 1.0 (0.9-1.2) 03/10/18 12:50 APTT 32.5 Seconds (25.6-37.1) 03/10/18 12:50 - Constitutional Appears: No Acute Distress - Head Exam Head Exam: ATRAUMATIC, NORMAL INSPECTION, NORMOCEPHALIC - Eye Exam Eye Exam: EOMI, Normal appearance, PERRL Pupil Exam: NORMAL ACCOMODATION, PERRL - ENT Exam ENT Exam: Mucous Membranes Moist, Normal Exam - Neck Exam Neck Exam: Full ROM, Normal Inspection. absent: Lymphadenopathy - Respiratory Exam Respiratory Exam: Clear to Ausculation Bilateral, NORMAL BREATHING PATTERN - Cardiovascular Exam Cardiovascular Exam: REGULAR RHYTHM, +S1, +S2. absent: Murmur - GI/Abdominal Exam GI & Abdominal Exam: Soft, Normal Bowel Sounds. absent: Tenderness - Rectal Exam Rectal Exam: NORMAL INSPECTION - Extremities Exam Extremities Exam: Full ROM, Normal Capillary Refill, Normal Inspection. absent : Joint Swelling, Pedal Edema - Back Exam Back Exam: NORMAL INSPECTION - Neurological Exam Neurological Exam: Alert, Awake, CN II-XII Intact, Normal Gait, Oriented x3 - Psychiatric Exam Psychiatric exam: Normal Affect, Normal Mood - Skin Skin Exam: Dry, Intact, Normal Color, Warm Assessment and Plan - Assessment and Plan (Free Text) Assessment: vit d toxicity with hypercalcemia hyperkalemia hypertension diabetes anxiety acute on chronic renal failure Plan: will continue iv fluids repeat k+--if stable will d/c home and continue out pt follow up
--- NOTE | 2018-03-15 09:48 | CP.PCM.PN ---
Subjective - Date & Time of Evaluation Date of Evaluation: 03/15/18 Time of Evaluation: 09:46 - Subjective Subjective: pt is seen and examined, follow up consult is dictated #[id number] consider hematology/ oncology consult for hypercalcemai for possible bisphosphonate therapy if possible repeat vit.d, 24 hr calcium, upep,spep, uif/sif. HTLV 1/2 ab continue iv hydration and calcitonin Objective - Vital Signs/Intake and Output Vital Signs (last 24 hours): Temp Pulse Resp BP Pulse Ox 98 F 82 18 144/84 100 03/15/18 08:54 03/15/18 08:54 03/15/18 08:54 03/15/18 08:54 03/15/18 08:54 - Medications Medications: Current Medications Acetaminophen (Tylenol 325mg Tab) 650 mg PO Q6 PRN PRN Reason: Headache Last Admin: 03/14/18 00:25 Dose: 650 mg Amlodipine Besylate (Norvasc) 2.5 mg PO DAILY [facility] Last Admin: 03/15/18 08:13 Dose: 2.5 mg Calcitonin [place] (Miacalcin) 200 intlu MARYANNE DAILY [facility] Last Admin: 03/15/18 08:11 Dose: 1 spr Glipizide (Glucotrol) 2.5 mg PO ACB [facility] Last Admin: 03/15/18 08:13 Dose: 2.5 mg Insulin Human Regular (Humulin R) 0 units SC ACHS [facility] PRN Reason: Protocol Last Admin: 03/15/18 06:54 Dose: Not Given Lorazepam (Ativan) 1 mg PO HS PRN PRN Reason: Sleep Last Admin: 03/14/18 23:05 Dose: 1 mg Pantoprazole Sodium (Protonix Ec Tab) 40 mg PO DAILY [facility] Last Admin: 03/15/18 08:12 Dose: 40 mg Sevelamer Carbonate (Renvela) 0.8 gm PO TIDWM [facility] Last Admin: 03/15/18 08:12 Dose: 0.8 gm - Labs Labs: 03/11/18 05:50 03/15/18 06:00 PT 11.4 Seconds (9.8-13.1) 03/10/18 12:50 INR 1.0 (0.9-1.2) 03/10/18 12:50 APTT 32.5 Seconds (25.6-37.1) 03/10/18 12:50
[2018-03-15] MEDS: Sodium Chloride 0.9% 1,000 ML IV SCH ×2 (11:05→17:19)
[2018-03-15] MEDS ORDERED: Pamidronate 90 mg/10 ml Inj IV ONE (11:16)
--- NOTE | 2018-03-15 19:29 | PN ---
Copied To: Valerie Nath MD Attending MD: Valerie Nath MD DATE: 03/15/2018 ENDO FOLLOWUP NOTE LOCATION: In room 669. SUBJECTIVE: This is a 67-year-old male with recent admission for malignant hypercalcemia and has since then improved clinically and metabolically as noted thereof. LABORATORY DATA: His latest chemistry showed a BUN of 50, sodium 138, potassium 4.4, chloride 106, CO2 of 21, glucose 76, and creatinine 4.2. The repeat calcium level is 12 as noted. His glucose values have ranged from 100 to 106 mg/dL. ASSESSMENT AND PLAN: So at this time, we will hold off the resumption of his oral hypoglycemic therapy for now. We will also continue the present medical management and intravenous hydration as given. We will need eventual and close metabolic followup with the cafe team member on the outpatient. His elevated calcium levels are yet to be determined in terms of etiology as the initial parathyroid hormone values were reported as normal, excluding the possibility of primary hyperparathyroidism at this time. With underlying chronic kidney disease, we would expect secondary hyperparathyroidism and low normal calcium levels, which contradicts his current metabolic profile at this point in time. We will obtain serial chemistries and supplement accordingly as needed. We will follow. We will also continue the Miacalcin nasal spray as an antiresorptive agent and hopefully improve the calcium levels accordingly. Valerie Nath MD
[2018-03-16] MEDS: Sodium Chloride 0.9% 1,000 ML IV SCH ×4 (00:30→20:30)
--- NOTE | 2018-03-16 03:24 | PN ---
Copied To: Yamel Casillas MD Attending MD: Yamel Casillas MD DATE: 03/15/2018 FOLLOWUP RENAL CONSULTATION LOCATION: The patient is located in room 669, bed 2. REQUESTED BY: Darwin Rangel MD REASON FOR FOLLOWUP: Hypercalcemia, renal failure, hyperkalemia. SUBJECTIVE: Mr. Portillo is a 67-year-old elderly male with a past medical history significant for longstanding hypertension, diabetes, chronic kidney disease, was admitted with increased BUN and creatinine, hypercalcemia, more than 13.3. The patient was taking vitamin D supplement 10,000 units daily, self-medicated, and protein supplements. The patient was found to have elevated vitamin D level on admission. The patient is not in acute distress. Denies any chest pain or palpitation. Denies any fever or cough. No abdominal pain. No nausea, vomiting, or diarrhea. Denies any dysuria or frequency. Denies any swelling of the legs. PHYSICAL EXAMINATION: VITAL SIGNS: As follows: This morning, blood pressure is 144/84, pulse 82, respirations 18, temperature 98, saturation 100%. Height 5 feet 4 inches. Weight is 125 pounds. GENERAL: Mr. Portillo is a 67-year-old elderly male, moderately built, moderately nourished, not in distress. HEENT: Pupils are normally reactive to light and accommodation. Conjunctivae are pink. Sclerae are anicteric. Tongue is moist. Trachea is midline. LUNGS: Symmetric on both sides. Bilateral breath sounds present. Clear to auscultation. CVS: [place] at the fifth intercostal space, midclavicular line. S1 and S2 audible. No murmur or gallop. ABDOMEN: Normal in appearance, soft, tympanic. No guarding. No rigidity. No hepatosplenomegaly. QA AUTOMATION ENGINEER: The patient is alert, awake, and oriented x3. Nonfocal neuro examination. Cranial nerves II-XII grossly intact. Sensory and motor system within normal limits. EXTREMITIES: No cyanosis. No clubbing. No edema. MEDICATIONS: His current medications include as follows: Ativan 1 mg p.o. at bedtime, glipizide 2.5 mg p.o. , Humulin R per sliding scale, Miacalcin 200 International Units daily, amlodipine 2.5 mg p.o. daily, Protonix 40 mg p.o. daily, Renvela 800 mg p.o. t.i.d., IV fluid normal saline at 150 mL/hour, and Tylenol. LABORATORY DATA: Include as follows as of 03/15/2018 this morning: Sodium 139, potassium 5.4, chloride 106, CO2 of 20, BUN 52, creatinine 4.4, glucose is 99, calcium is 12, and GFR is about 16 mL. ASSESSMENT AND PLAN: In summary, Mr. Portillo is a 67-year-old elderly male with hypertension, diabetes, chronic kidney disease, on vitamin D supplementation, self-medicated, was admitted with hypercalcemia of 13.3 and dehydration. Started on intravenous fluids with slight improvement in the calcium, improved to 12; even on calcitonin, no significant improvement in the calcium level. 1. Hypercalcemia secondary to vitamin D intoxication. The patient is off vitamin D for more than a week, on intravenous fluids. Continue intravenous fluid normal saline at 150 mL/hour and continue Miacalcin 200 International Units intranasally in alternate nostril and consider hematology/oncology consult for possible Aredia infusion. 2. Hypertension. 3. Diabetes. 4. Chronic kidney disease, most likely secondary to diabetic nephropathy, cannot rule out underlying hypertensive nephrosclerosis. We will also check HTLV-I and II antibody and urine protein electrophoresis and serum protein electrophoresis, less likely multiple myeloma at this stage. We will rule out. Case discussed with Dr. Darwin Rangel in rounds and also discussed with the oncologist, Dr. Soto. We will repeat basic metabolic panel in the morning. I agree with Kayexalate x1 dose this morning. Yamel Casillas MD
[2018-03-16] MEDS: Insulin Regular 100 units/ml SC SCH ×4 (07:35→22:00)
[2018-03-16 08:02] LABS: HEMOGLOBIN 10.8 g/dL (12.0-18.0); MEAN CELL VOLUME 87.6 fl (80.0-94.0); MEAN CORPUSCULAR HEMOGLOBIN 29.6 pg (27.0-31.0); MEAN CORPUSCULAR HGB CONC 33.8 g/dL (33.0-37.0); RBC 3.66 Mil/uL (4.40-5.90); RED CELL DISTRIBUTION WIDTH 15.9 % (11.5-14.5); WHITE BLOOD COUNT 6.3 K/uL (4.8-10.8)
[2018-03-16] MEDS: Calcitonin 200 Int Units/Inh Nasal Spray (3.7 ml) NAS SCH (08:29)
[2018-03-16] MEDS: Sevelamer Carb 0.8 gm/Packet PO SCH ×3 (08:29→16:14)
[2018-03-16] MEDS: Pantoprazole 40 mg EC Tab PO SCH (08:29)
[2018-03-16 08:32] LABS: ALB/GLOB RATIO 1.3 (1.0-2.1); ALBUMIN 3.8 g/dL (3.5-5.0); CALCIUM 12.3 mg/dL (8.4-10.2)
--- NOTE | 2018-03-16 10:01 | CP.PCM.CON ---
History of Present Illness - History of Present Illness History of Present Illness: This is a 67 yrs old male who was admitted with c/o vomiting for a couple of days and became dehydrated while in [place]. He also had a acute renal failure and was told that he needed renal dialysis. [place] this [place] and was seen in the ER, and admitted. His CBC showed a WBC of 9.6, hgb of 12.2gms anf platelets of 449. Chemistry showed na 137, k-4.8, cl 105, carbon dioxide 19, bun 18 and creatinine 4.2.and GFR 14. his serum calcium was 12.31 with a normal albumin 3.8. .He was given miaclacitonin without any improvement I have given him 1 dose of 90 mg of Aredia yesterday and will ck the calcium tomorrow. Total protein and globulin normal. I had sent immunofixation but all the results were normal. . Awaiting the SPE and Light chain results. He does not have any bone pain. He has never smoked Used to drink occasionally. Past Patient History - Infectious Disease Hx of Infectious Diseases: None - Past Medical History & Family History Past Medical History?: Yes - Past Social History Smoking Status: Never Smoked - CARDIAC Hx Hypertension: Yes - RENAL Hx Chronic Kidney Disease: Yes - ENDOCRINE/METABOLIC Hx Diabetes Mellitus Type 2: Yes - MUSCULOSKELETAL/RHEUMATOLOGICAL Hx Falls: No - PSYCHIATRIC Hx Substance Use: No - ANESTHESIA Hx Anesthesia: No Meds Allergies/Adverse Reactions: Allergies Allergy/AdvReac Type Severity Reaction Status Date / Time No Known Allergies Allergy Verified 03/07/18 13:32 - Medications Medications: Current Medications Acetaminophen (Tylenol 325mg Tab) 650 mg PO Q6 PRN PRN Reason: Headache Last Admin: 03/15/18 16:52 Dose: 650 mg Amlodipine Besylate (Norvasc) 2.5 mg PO DAILY [facility] Last Admin: 03/16/18 08:30 Dose: 2.5 mg Calcitonin [place] (Miacalcin) 200 intlu MARYANNE DAILY [facility] Last Admin: 03/16/18 08:29 Dose: 1 spr Glipizide (Glucotrol) 2.5 mg PO ACB [facility] Last Admin: 03/16/18 08:28 Dose: 2.5 mg Sodium Chloride (Sodium Chloride 0.9%) 1,000 mls @ 150 mls/hr IV .Q6H40M [facility] Stop: 03/16/18 10:16 Last Admin: 03/16/18 07:37 Dose: 150 mls/hr Insulin Human Regular (Humulin R) 0 units SC ACHS [facility] PRN Reason: Protocol Last Admin: 03/16/18 07:35 Dose: Not Given Lorazepam (Ativan) 1 mg PO HS PRN PRN Reason: Sleep Last Admin: 03/15/18 23:00 Dose: 1 mg Pantoprazole Sodium (Protonix Ec Tab) 40 mg PO DAILY [facility] Last Admin: 03/16/18 08:29 Dose: 40 mg Sevelamer Carbonate (Renvela) 0.8 gm PO TIDWM [facility] Last Admin: 03/16/18 08:29 Dose: 0.8 gm Physical Exam - Additional Findings Additional findings: Phyusical Eam; Alert,well oriented in no acute distress Neck; Supple, no adenopathy Chest; clear, no ales or rhonchi or rales. Heart; RSR, no murmur Abd; soft., no mass, no h/s megaly Results - Vital Signs Recent Vital Signs: Last Vital Signs Temp 97.8 F 03/16/18 08:40 Pulse 91 H 03/16/18 08:40 Resp 18 03/16/18 08:40 BP 165/82 H 03/16/18 08:40 Pulse Ox 99 03/16/18 08:40 - Labs Result Diagrams: 03/16/18 07:55 03/16/18 07:55 Labs: Laboratory Results - last 24 hr 03/15/18 03/15/18 03/15/18 10:09 11:12 12:00 WBC RBC Hgb Hct MCV MCH MCHC RDW Plt Count Sodium 138 Potassium 4.4 Chloride 106 Carbon Dioxide 21 L Anion Gap 15 BUN 50 H Creatinine 4.2 H Est GFR ( Amer) 17 Est GFR (Non-Af Amer) 14 POC Glucose (mg/dL) 106 Random Glucose 76 Calcium 12.0 H Total Bilirubin AST ALT Alkaline Phosphatase Total Protein Total Protein (PEP) Albumin Globulin Albumin/Globulin Ratio Ur Random Creatinine 32 U Random Total Protein 667 H IgG IgA IgM 03/15/18 03/15/18 03/15/18 12:00 12:00 15:25 WBC RBC Hgb Hct MCV MCH MCHC RDW Plt Count Sodium Potassium Chloride Carbon Dioxide Anion Gap BUN Creatinine Est GFR ( Amer) Est GFR (Non-Af Amer) POC Glucose (mg/dL) 90 Random Glucose Calcium Total Bilirubin AST ALT Alkaline Phosphatase Total Protein Total Protein (PEP) 6.4 Albumin Globulin Albumin/Globulin Ratio Ur Random Creatinine U Random Total Protein IgG 1015 IgA 188 IgM 82 03/15/18 03/16/18 03/16/18 21:40 05:40 07:55 WBC 6.3 RBC 3.66 L Hgb 10.8 L Hct 32.1 L MCV 87.6 MCH 29.6 MCHC 33.8 RDW 15.9 H Plt Count 236 Sodium Potassium Chloride Carbon Dioxide Anion Gap BUN Creatinine Est GFR ( Amer) Est GFR (Non-Af Amer) POC Glucose (mg/dL) 79 81 Random Glucose Calcium Total Bilirubin AST ALT Alkaline Phosphatase Total Protein Total Protein (PEP) Albumin Globulin Albumin/Globulin Ratio Ur Random Creatinine U Random Total Protein IgG IgA IgM 03/16/18 07:55 WBC RBC Hgb Hct MCV MCH MCHC RDW Plt Count Sodium 137 Potassium 4.8 Chloride 105 Carbon Dioxide 19 L Anion Gap 18 BUN 57 H Creatinine 4.2 H Est GFR ( Amer) 17 Est GFR (Non-Af Amer) 14 POC Glucose (mg/dL) Random Glucose 95 Calcium 12.3 H Total Bilirubin 0.4 AST 23 ALT 33 Alkaline Phosphatase 76 Total Protein 6.6 Total Protein (PEP) Albumin 3.8 Globulin 2.9 Albumin/Globulin Ratio 1.3 Ur Random Creatinine U Random Total Protein IgG IgA IgM Assessment & Plan - Assessment and Plan (Free Text) Assessment: Impression; Acute renal failure Hypercalcemia Plan: Plan; I gave the pt one dose of aredia will wait for 48-72 hrs to see te result. Have ordered tests for multiple myeloma Will follow. - Date & Time Date: 03/16/18 Time: 10:31
--- NOTE | 2018-03-16 10:19 | CP.PCM.PN ---
Subjective - Date & Time of Evaluation Date of Evaluation: 03/16/18 Time of Evaluation: 10:19 - Subjective Subjective: NO APPARENT DISTRESS VSS HYPERCALCEMIA PERSISTS HEME AND NEPHROLOGY EVAL APPRECIATED Objective - Vital Signs/Intake and Output Vital Signs (last 24 hours): Temp Pulse Resp BP Pulse Ox 97.8 F 91 H 18 165/82 H 99 03/16/18 08:40 03/16/18 08:40 03/16/18 08:40 03/16/18 08:40 03/16/18 08:40 - Medications Medications: Current Medications Acetaminophen (Tylenol 325mg Tab) 650 mg PO Q6 PRN PRN Reason: Headache Last Admin: 03/15/18 16:52 Dose: 650 mg Amlodipine Besylate (Norvasc) 2.5 mg PO DAILY [facility] Last Admin: 03/16/18 08:30 Dose: 2.5 mg Calcitonin [place] (Miacalcin) 200 intlu MARYANNE DAILY [facility] Last Admin: 03/16/18 08:29 Dose: 1 spr Glipizide (Glucotrol) 2.5 mg PO ACB [facility] Last Admin: 03/16/18 08:28 Dose: 2.5 mg Insulin Human Regular (Humulin R) 0 units SC ACHS [facility] PRN Reason: Protocol Last Admin: 03/16/18 07:35 Dose: Not Given Lorazepam (Ativan) 1 mg PO HS PRN PRN Reason: Sleep Last Admin: 03/15/18 23:00 Dose: 1 mg Pantoprazole Sodium (Protonix Ec Tab) 40 mg PO DAILY [facility] Last Admin: 03/16/18 08:29 Dose: 40 mg Sevelamer Carbonate (Renvela) 0.8 gm PO TIDWM [facility] Last Admin: 03/16/18 08:29 Dose: 0.8 gm - Labs Labs: 03/16/18 07:55 03/16/18 07:55 PT 11.4 Seconds (9.8-13.1) 03/10/18 12:50 INR 1.0 (0.9-1.2) 03/10/18 12:50 APTT 32.5 Seconds (25.6-37.1) 03/10/18 12:50 - Constitutional Appears: Well - Head Exam Head Exam: ATRAUMATIC, NORMAL INSPECTION, NORMOCEPHALIC - Eye Exam Eye Exam: EOMI, Normal appearance, PERRL Pupil Exam: NORMAL ACCOMODATION, PERRL - ENT Exam ENT Exam: Mucous Membranes Moist, Normal Exam - Neck Exam Neck Exam: Full ROM, Normal Inspection. absent: Lymphadenopathy - Respiratory Exam Respiratory Exam: Clear to Ausculation Bilateral, NORMAL BREATHING PATTERN - Cardiovascular Exam Cardiovascular Exam: REGULAR RHYTHM, +S1, +S2. absent: Murmur - GI/Abdominal Exam GI & Abdominal Exam: Soft, Normal Bowel Sounds. absent: Tenderness - Rectal Exam Rectal Exam: NORMAL INSPECTION - Extremities Exam Extremities Exam: Full ROM, Normal Capillary Refill, Normal Inspection. absent : Joint Swelling, Pedal Edema - Back Exam Back Exam: NORMAL INSPECTION - Neurological Exam Neurological Exam: Alert, Awake, CN II-XII Intact, Normal Gait, Oriented x3 - Psychiatric Exam Psychiatric exam: Normal Affect, Normal Mood - Skin Skin Exam: Dry, Intact, Normal Color, Warm Assessment and Plan - Assessment and Plan (Free Text) Assessment: ACUTE ON CHRONIC RENAL FAILURE HTN DM HYPERCALCEMIA ANEMIA Plan: CONTINUE CURRENT RX
[2018-03-16 12:47] LABS: HEPATITIS B SURFACE AG Negative (NEGATIVE)
[2018-03-16 12:53] LABS: HEPATITIS A IGM NEGATIVE (NEGATIVE); HEPATITIS B CORE AB NEGATIVE (NEGATIVE)
[2018-03-16 13:04] LABS: HEPATITIS C ANTIBODY NEGATIVE (NEGATIVE)
--- NOTE | 2018-03-16 20:33 | CP.PCM.PN ---
Subjective - Date & Time of Evaluation Date of Evaluation: 03/16/18 Time of Evaluation: 20:33 - Subjective Subjective: pt is seen and examined, follow up consult is dictated #[id number] Objective - Vital Signs/Intake and Output Vital Signs (last 24 hours): Temp Pulse Resp BP Pulse Ox 99 F 98 H 18 133/69 99 03/16/18 16:20 03/16/18 16:20 03/16/18 16:20 03/16/18 16:20 03/16/18 16:20 - Medications Medications: Current Medications Acetaminophen (Tylenol 325mg Tab) 650 mg PO Q6 PRN PRN Reason: Headache Last Admin: 03/16/18 18:04 Dose: 650 mg Amlodipine Besylate (Norvasc) 2.5 mg PO DAILY [facility] Last Admin: 03/16/18 08:30 Dose: 2.5 mg Calcitonin [place] (Miacalcin) 200 intlu MARYANNE DAILY [facility] Last Admin: 03/16/18 08:29 Dose: 1 spr Glipizide (Glucotrol) 2.5 mg PO ACB [facility] Last Admin: 03/16/18 08:28 Dose: 2.5 mg Sodium Chloride (Sodium Chloride 0.9%) 1,000 mls @ 150 mls/hr IV .Q6H40M [facility] Stop: 03/17/18 23:59 Insulin Human Regular (Humulin R) 0 units SC ACHS [facility] PRN Reason: Protocol Last Admin: 03/16/18 16:13 Dose: Not Given Lorazepam (Ativan) 1 mg PO HS PRN PRN Reason: Sleep Last Admin: 03/15/18 23:00 Dose: 1 mg Pantoprazole Sodium (Protonix Ec Tab) 40 mg PO DAILY [facility] Last Admin: 03/16/18 08:29 Dose: 40 mg Sevelamer Carbonate (Renvela) 0.8 gm PO TIDWM [facility] Last Admin: 03/16/18 16:14 Dose: 0.8 gm - Labs Labs: 03/16/18 07:55 03/16/18 07:55 PT 11.4 Seconds (9.8-13.1) 03/10/18 12:50 INR 1.0 (0.9-1.2) 03/10/18 12:50 APTT 32.5 Seconds (25.6-37.1) 03/10/18 12:50
[2018-03-17] MEDS: Sodium Chloride 0.9% 1,000 ML IV SCH ×4 (03:30→23:00)
--- NOTE | 2018-03-17 05:46 | PN ---
Copied To: Yamel Casillas MD Attending MD: Yamel Casillas MD DATE: 03/16/2018 REQUESTED BY: Darwin Rangle MD REASON FOR FOLLOWUP: CKD and hypercalcemia. SUBJECTIVE: Mr. Portillo is a 67-year-old elderly male with a history of longstanding hypertension and diabetes, chronic kidney disease, on vitamin D supplementation, self medicated, was found to have hypercalcemia and renal failure and dehydration and polyuria on admission. The patient was started on IV fluids normal saline at 150 mL per hour since admission. His serum calcium initially decreased from 13.3 to 11.6 and now serum calcium is again getting worse and his calcium this morning is 12.3. The patient was also evaluated by Hematology/Oncology, Dr. Carol Soto and started on Aredia 90 mg x1 dose yesterday. The patient is not in distress, denies any complaints. No chest pain. No palpitation. No fever. No cough. No nausea, vomiting, diarrhea. Denies using any [id number] medication at this time. Denies any self medication. PHYSICAL EXAMINATION: VITAL SIGNS: Blood pressure 133/69, pulse 98, respirations 18, temperature 99, saturation 99%. Height 5 feet 4 inches, weight is 125 pounds. GENERAL: Mr. Portillo is a 67-year-old male, moderately built, moderately nourished, not in any acute distress. HEENT: Pupils normal and reactive to light and accommodation. Conjunctivae pink. Sclerae anicteric. Tongue is moist. Trachea is midline. LUNGS: Symmetric on both sides. Bilateral breath sounds present. Clear to auscultation. CVS: [place] at the fifth intercostal space, midclavicular line. S1, S2 audible. No murmur or gallop. ABDOMEN: Normal in appearance. Soft, tympanic. No guarding. No rigidity. No hepatosplenomegaly. FINANCIAL PROJECT MANAGER: The patient is alert, awake, oriented x3. Nonfocal neuro examination. Cranial nerve II through XII grossly intact. Sensory and motor system is within normal limits. EXTREMITIES: No cyanosis, no clubbing, no edema. CURRENT MEDICATIONS: As follows: Ativan 1 mg p.o. at bedtime, Glucotrol 2.5 mg p.o. , Humulin R per sliding scale, Miacalcin 200 units alternate nostril daily, Norvasc 2.5 mg daily, Protonix 1 mg daily, Renvela 800 mg p.o. t.i.d., IV fluids normal saline at 150 mL per hour, Tylenol 325 mg p.o. every 6 hours p.r.n. Aredia 90 mg x1 given on 03/15/2018, CURRENT LABORATORY DATA: Include as follows: As of 03/16/2018, WBC 6.3, hemoglobin 10.8, hematocrit is 32.1, platelets 236. Sodium 137, potassium 4.8, chloride 105, CO2 of 19, BUN 57, creatinine 4.2, glucose 95, calcium 12.3, total bilirubin 0.4, AST 23, ALT 33, alkaline phosphatase 76, total protein 6.6, albumin 3.8. Hepatitis B surface antigen negative, core antibody negative, hepatitis C antibody negative. Other reports: Vitamin D level is more than 252 on 03/15/2018. 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 In summary, Mr. Portillo is a 67-year-old male with hypertension, diabetes, chronic kidney disease with elevated PSA status post biopsy consistent with intraepithelial prostate neoplasm and increased serum calcium level. 1. Acute renal failure on chronic kidney disease, stage 4. Renal function gradually improved to 4.2. This might be his new baseline. 2. Hypercalcemia secondary to severe vitamin D intoxication. The serum vitamin D level is still more than 252. The patient underwent Aredia treatment x1 yesterday. Continue to monitor calcium level and follow with Heme/Oncology for repeat dose if possible. 3. Hypertension. 4. Diabetes. Repeat BMP in a.m. Continue IV fluids. We will follow with you. Thank you for allowing me to participate in your patient's care. Yamel Casillas MD
[2018-03-17 06:20] LABS: ALBUMIN (PEP) 3.9 g/dL (3.8-4.8); ALPHA-1-GLOBULIN (PEP) 0.3 g/dL (0.2-0.3)
[2018-03-17 07:45] LABS: ALB/GLOB RATIO 1.3 (1.0-2.1); ALBUMIN 3.6 g/dL (3.5-5.0); CALCIUM 10.8 mg/dL (8.4-10.2)
--- NOTE | 2018-03-17 08:20 | PN ---
Copied To: Valerie Nath MD Attending MD: Valerie Nath MD DATE: 03/16/2018 SUBJECTIVE: This is a 67-year-old male with recent admission for malignant hypercalcemia and has since then improved clinically and metabolically as noted thereof. However, his renal indices still show the presence of advanced azotemia with underlying chronic kidney disease as noted. His latest glucose values have ranged from 81 to 103 and 100 mg/dL. LABORATORY DATA: His latest chemistries showed a BUN of 57, sodium 137, potassium 4.8, chloride 105, CO2 of 19, glucose 95, and creatinine 4.5. His latest calcium level is 12.3 which is still elevated as noted thereof. ASSESSMENT AND PLAN: The possibility always of the so-called humoral hypercalcemia of malignancy has to be excluded at this point in time since we have already ruled out the presence of underlying primary hyperparathyroidism as noted. With underlying chronic kidney disease, we also expect secondary hyperparathyroidism thereof. We will obtain serial chemistries and supplement accordingly as needed. We will follow. Valerie Nath MD
[2018-03-17] MEDS: Insulin Regular 100 units/ml SC SCH ×4 (08:36→22:31)
[2018-03-17] MEDS: Calcitonin 200 Int Units/Inh Nasal Spray (3.7 ml) NAS SCH (08:36)
[2018-03-17] MEDS: Pantoprazole 40 mg EC Tab PO SCH (08:37)
[2018-03-17] MEDS: Sevelamer Carb 0.8 gm/Packet PO SCH ×3 (08:38→16:36)
--- NOTE | 2018-03-17 08:40 | CP.PCM.PN ---
Subjective - Date & Time of Evaluation Date of Evaluation: 03/17/18 Time of Evaluation: 08:40 - Subjective Subjective: NO APPARENT DISTRESS VSS Objective - Vital Signs/Intake and Output Vital Signs (last 24 hours): Temp Pulse Resp BP Pulse Ox 97.8 F 90 20 154/71 H 99 03/17/18 08:26 03/17/18 08:37 03/17/18 08:26 03/17/18 08:37 03/17/18 08:26 - Medications Medications: Current Medications Acetaminophen (Tylenol 325mg Tab) 650 mg PO Q6 PRN PRN Reason: Headache Last Admin: 03/16/18 18:04 Dose: 650 mg Amlodipine Besylate (Norvasc) 2.5 mg PO DAILY [facility] Last Admin: 03/17/18 08:37 Dose: 2.5 mg Calcitonin [place] (Miacalcin) 200 intlu MARYANNE DAILY [facility] Last Admin: 03/17/18 08:36 Dose: 1 spr Glipizide (Glucotrol) 2.5 mg PO ACB [facility] Last Admin: 03/17/18 08:37 Dose: 2.5 mg Sodium Chloride (Sodium Chloride 0.9%) 1,000 mls @ 150 mls/hr IV .Q6H40M [facility] Stop: 03/17/18 23:59 Last Admin: 03/17/18 03:30 Dose: 150 mls/hr Insulin Human Regular (Humulin R) 0 units SC ACHS [facility] PRN Reason: Protocol Last Admin: 03/17/18 08:36 Dose: Not Given Lorazepam (Ativan) 1 mg PO HS PRN PRN Reason: Sleep Last Admin: 03/17/18 01:55 Dose: 1 mg Pantoprazole Sodium (Protonix Ec Tab) 40 mg PO DAILY [facility] Last Admin: 03/17/18 08:37 Dose: 40 mg Sevelamer Carbonate (Renvela) 0.8 gm PO TIDWM [facility] Last Admin: 03/17/18 08:38 Dose: 0.8 gm - Labs Labs: 03/16/18 07:55 03/17/18 06:50 PT 11.4 Seconds (9.8-13.1) 03/10/18 12:50 INR 1.0 (0.9-1.2) 03/10/18 12:50 APTT 32.5 Seconds (25.6-37.1) 03/10/18 12:50 - Constitutional Appears: No Acute Distress - Head Exam Head Exam: ATRAUMATIC, NORMAL INSPECTION, NORMOCEPHALIC - Eye Exam Eye Exam: EOMI, Normal appearance, PERRL Pupil Exam: NORMAL ACCOMODATION, PERRL - ENT Exam ENT Exam: Mucous Membranes Moist, Normal Exam - Neck Exam Neck Exam: Full ROM, Normal Inspection. absent: Lymphadenopathy - Respiratory Exam Respiratory Exam: Clear to Ausculation Bilateral, NORMAL BREATHING PATTERN - Cardiovascular Exam Cardiovascular Exam: REGULAR RHYTHM, +S1, +S2. absent: Murmur - GI/Abdominal Exam GI & Abdominal Exam: Soft, Normal Bowel Sounds. absent: Tenderness - Rectal Exam Rectal Exam: NORMAL INSPECTION - Extremities Exam Extremities Exam: Full ROM, Normal Capillary Refill, Normal Inspection. absent : Joint Swelling, Pedal Edema - Back Exam Back Exam: NORMAL INSPECTION - Neurological Exam Neurological Exam: Alert, Awake, CN II-XII Intact, Normal Gait, Oriented x3 - Psychiatric Exam Psychiatric exam: Normal Affect, Normal Mood - Skin Skin Exam: Dry, Intact, Normal Color, Warm Assessment and Plan - Assessment and Plan (Free Text) Assessment: HYPERCALCEMIA IMPROVING DM-STABLE HTN ANEMIA Plan: CONTINUE IV HYDRATION D/C IN AM IF STABLE
--- NOTE | 2018-03-17 10:32 | CP.PCM.PN ---
Subjective - Date & Time of Evaluation Date of Evaluation: 03/17/18 Time of Evaluation: 10:29 - Subjective Subjective: Pt responded well well with the Aredia, will continue to monitor. Await results to see if he has a multiple myeloma the calcium Objective - Vital Signs/Intake and Output Vital Signs (last 24 hours): Temp Pulse Resp BP Pulse Ox 97.8 F 90 20 154/71 H 99 03/17/18 08:26 03/17/18 08:37 03/17/18 08:26 03/17/18 08:37 03/17/18 08:26 - Medications Medications: Current Medications Acetaminophen (Tylenol 325mg Tab) 650 mg PO Q6 PRN PRN Reason: Headache Last Admin: 03/16/18 18:04 Dose: 650 mg Amlodipine Besylate (Norvasc) 2.5 mg PO DAILY [facility] Last Admin: 03/17/18 08:37 Dose: 2.5 mg Calcitonin [place] (Miacalcin) 200 intlu MARYANNE DAILY [facility] Last Admin: 03/17/18 08:36 Dose: 1 spr Glipizide (Glucotrol) 2.5 mg PO ACB [facility] Last Admin: 03/17/18 08:37 Dose: 2.5 mg Sodium Chloride (Sodium Chloride 0.9%) 1,000 mls @ 150 mls/hr IV .Q6H40M [facility] Stop: 03/17/18 23:59 Last Admin: 03/17/18 03:30 Dose: 150 mls/hr Insulin Human Regular (Humulin R) 0 units SC ACHS [facility] PRN Reason: Protocol Last Admin: 03/17/18 08:36 Dose: Not Given Lorazepam (Ativan) 1 mg PO HS PRN PRN Reason: Sleep Last Admin: 03/17/18 01:55 Dose: 1 mg Pantoprazole Sodium (Protonix Ec Tab) 40 mg PO DAILY [facility] Last Admin: 03/17/18 08:37 Dose: 40 mg Sevelamer Carbonate (Renvela) 0.8 gm PO TIDWM [facility] Last Admin: 03/17/18 08:38 Dose: 0.8 gm - Labs Labs: 03/16/18 07:55 03/17/18 06:50 PT 11.4 Seconds (9.8-13.1) 03/10/18 12:50 INR 1.0 (0.9-1.2) 03/10/18 12:50 APTT 32.5 Seconds (25.6-37.1) 03/10/18 12:50
[2018-03-17 13:03] LABS: ALPHA-1 GLOBULIN 12.1 Relative %
--- NOTE | 2018-03-17 18:21 | CP.PCM.PN ---
Subjective - Date & Time of Evaluation Date of Evaluation: 03/17/18 Time of Evaluation: 18:20 - Subjective Subjective: pt is seen and examined, follow up consult is dictated #[id number] bmp in am Objective - Vital Signs/Intake and Output Vital Signs (last 24 hours): Temp Pulse Resp BP Pulse Ox 99.3 F 93 H 20 137/72 99 03/17/18 17:00 03/17/18 17:00 03/17/18 17:00 03/17/18 17:00 03/17/18 17:00 - Medications Medications: Current Medications Acetaminophen (Tylenol 325mg Tab) 650 mg PO Q6 PRN PRN Reason: Headache Last Admin: 03/16/18 18:04 Dose: 650 mg Amlodipine Besylate (Norvasc) 2.5 mg PO DAILY [facility] Last Admin: 03/17/18 08:37 Dose: 2.5 mg Sodium Chloride (Sodium Chloride 0.9%) 1,000 mls @ 150 mls/hr IV .Q6H40M [facility] Stop: 03/17/18 23:59 Last Admin: 03/17/18 16:33 Dose: 150 mls/hr Insulin Human Regular (Humulin R) 0 units SC ACHS [facility] PRN Reason: Protocol Last Admin: 03/17/18 16:30 Dose: Not Given Lorazepam (Ativan) 1 mg PO HS PRN PRN Reason: Sleep Last Admin: 03/17/18 01:55 Dose: 1 mg Pantoprazole Sodium (Protonix Ec Tab) 40 mg PO DAILY [facility] Last Admin: 03/17/18 08:37 Dose: 40 mg Sevelamer Carbonate (Renvela) 0.8 gm PO TIDWM [facility] Last Admin: 03/17/18 16:36 Dose: 0.8 gm - Labs Labs: 03/16/18 07:55 03/17/18 06:50 PT 11.4 Seconds (9.8-13.1) 03/10/18 12:50 INR 1.0 (0.9-1.2) 03/10/18 12:50 APTT 32.5 Seconds (25.6-37.1) 03/10/18 12:50
[2018-03-17 20:10] LABS: HTLV-I-II AB W/REFL CONF Nonreactive (Nonreactive)
--- NOTE | 2018-03-17 22:29 | PN ---
Copied To: Valerie Nath MD Attending MD: Valerie Nath MD DATE: 03/17/2018 SUBJECTIVE: This is a 67-year-old male with recent progressive renal insufficiency and underlying chronic kidney disease, presenting here with acute renal failure superimposed on underlying chronic kidney disease and concomitant malignant hypercalcemia as noted thereof. He received vigorous IV hydration with remarkable metabolic improvement as noted. His glucose values are fluctuating but improved and the glucose levels have ranged from 67 to 99 and 140 mg/dL. LABORATORY DATA: His latest chemistry showed a BUN of 55, sodium 138, potassium 4.4, chloride 108, CO2 of 21, glucose 100, and creatinine 4.7. His calcium is down to 10.8 mg/dL with an albumin of 3.6. ASSESSMENT AND PLAN: So, at this time, we will continue the present medical management with IV hydration as given. We will obtain serial chemistries and supplement accordingly as needed. We will also discontinue the glipizide given as 2.5 mg once daily because of supervening hypoglycemia with underlying advanced azotemia and progressive renal insufficiency thereof. We will obtain serial chemistries and supplement accordingly as needed. We will follow. Valerie Nath MD
[2018-03-18 00:13] VITALS: RESP 19
--- NOTE | 2018-03-18 06:39 | CON ---
Copied To: Yamel Casillas MD Attending MD: Yamel Casillas MD DATE: 03/17/2018 FOLLOWUP RENAL CONSULTATION LOCATION: The patient is located in room 669, bed 2. REQUESTED BY: Darwin Rangel MD REASON FOR RENAL CONSULTATION: Hypercalcemia and chronic kidney disease. HISTORY OF PRESENT ILLNESS: Mr. Portillo is a 67-year-old elderly male with a past medical history significant for longstanding hypertension, diabetes, CKD 4-5, hypercalcemia, was admitted for evaluation of hypercalcemia and renal failure. The patient was taking vitamin D 10,000 units daily for the last three to four months as per the patient and dietary supplements. The patient is not in acute distress. Denies any headache, dizziness. Denies any chest pain, palpitation. Denies any fever, cough. No abdominal pain. No nausea, vomiting, diarrhea. Claims he has a good urine output. The patient was given Aredia x1 dose two days ago. PHYSICAL EXAMINATION: VITAL SIGNS: Blood pressure 137/72, pulse 93, respirations 20, temperature 99.3, saturation 99%. Height 5 feet 4 inches and weight is 125 pounds. GENERAL: Mr. Portillo is a 67-year-old elderly male, moderately built, moderately nourished, not in distress. HEENT: Pupils normal, reactive to light and accommodation. Conjunctivae pink. Sclerae nonicteric. Tongue is moist. Trachea is midline. LUNGS: Symmetric on both sides. Bilateral breath sounds present. Clear to auscultation. CVS: [place] at the fifth intercostal space and midclavicular line. S1, S2 audible. No murmur, gallop. ABDOMEN: Normal in appearance. Soft, tympanitic. No guarding. No rigidity. No hepatosplenomegaly. BODY CORPORATE MANAGER: The patient is alert, awake, oriented x3. Nonfocal neuro examination. Cranial nerves II through XII grossly intact. Sensory and motor system is within normal limits. EXTREMITIES: No cyanosis. No clubbing. No edema. CURRENT MEDICATIONS: Include as follows: Ativan 1 mg p.o. at bedtime, Humulin R per sliding scale, Norvasc 2.5 mg daily, Protonix 40 mg daily, Renvela 800 mg p.o. t.i.d., IV fluids, normal saline at 150 mL per hour, and Tylenol 650 mg p.o. every 6 hours p.r.n. LABORATORY DATA: Include as follows: As of 03/17/2018, sodium 138, potassium 4.4, chloride 108, CO2 21, BUN , creatinine 4.7, glucose 100, and calcium is 10.8. Total bili 0.3, AST 26, ALT 30, alkaline phosphatase 75, total protein 6.5, albumin is 3.6. ASSESSMENT AND PLAN: In summary, Mr. Portillo is a 67-year-old elderly male with hypertension, diabetes, chronic kidney disease, on oral vitamin D supplementation by patient himself, with hypercalcemia and increased BUN and creatinine. 1. Chronic kidney disease, stage 4, most likely secondary to hypertensive nephrosclerosis. Cannot rule out underlying diabetic nephropathy, less likely. 2. Hypercalcemia secondary to vitamin D intoxication. All the serology was negative. HTLV-I, II antibodies were also negative. SPEP was also negative. The patient was given Aredia x1 dose and also receiving calcitonin 200 international units intranasal daily and now the calcium is 10.8. Plan, we will discontinue calcitonin and continue to monitor BMP and calcium in a.m. Continue IV fluids. 3. Hypertension. Blood pressure is stable. Continue Norvasc. If calcium remains stable, the patient can be discharged home and followup as an outpatient, if the patient agrees. The patient will need AV fistula for the near future, hemodialysis if the patient agrees or transplant evaluation. We will follow with you. Thank you for allowing me to participate in your patient's care. Yamel Casillas MD
[2018-03-18] MEDS: Sodium Chloride 0.9% 1,000 ML IV SCH (07:19)
[2018-03-18] MEDS: Insulin Regular 100 units/ml SC SCH (07:27)
--- NOTE | 2018-03-18 07:43 | CP.PCM.PN ---
Subjective - Date & Time of Evaluation Date of Evaluation: 03/18/18 Time of Evaluation: 07:41 - Subjective Subjective: Pt is feeling better. 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, All the myeloma tests are negative so far.CBC is normal Objective - Vital Signs/Intake and Output Vital Signs (last 24 hours): Temp Pulse Resp BP Pulse Ox 98.2 F 80 19 142/77 99 03/18/18 00:00 03/18/18 00:00 03/18/18 00:00 03/18/18 00:00 03/18/18 00:00 - Medications Medications: Current Medications Acetaminophen (Tylenol 325mg Tab) 650 mg PO Q6 PRN PRN Reason: Headache Last Admin: 03/16/18 18:04 Dose: 650 mg Amlodipine Besylate (Norvasc) 2.5 mg PO DAILY [facility] Last Admin: 03/17/18 08:37 Dose: 2.5 mg Insulin Human Regular (Humulin R) 0 units SC ACHS [facility] PRN Reason: Protocol Last Admin: 03/18/18 07:27 Dose: Not Given Lorazepam (Ativan) 1 mg PO HS PRN PRN Reason: Sleep Last Admin: 03/17/18 22:55 Dose: 1 mg Pantoprazole Sodium (Protonix Ec Tab) 40 mg PO DAILY [facility] Last Admin: 03/17/18 08:37 Dose: 40 mg Sevelamer Carbonate (Renvela) 0.8 gm PO TIDWM [facility] Last Admin: 03/17/18 16:36 Dose: 0.8 gm - Labs Labs: 03/16/18 07:55 03/17/18 06:50 PT 11.4 Seconds (9.8-13.1) 03/10/18 12:50 INR 1.0 (0.9-1.2) 03/10/18 12:50 APTT 32.5 Seconds (25.6-37.1) 03/10/18 12:50
[2018-03-18 07:52] VITALS: BP 153/71; PULSE 83; TEMP 98.1; O2SAT 100
[2018-03-18] MEDS: Sevelamer Carb 0.8 gm/Packet PO SCH (08:17)
[2018-03-18] MEDS: Pantoprazole 40 mg EC Tab PO SCH (08:17)
--- NOTE | 2018-03-18 08:32 | CP.PCM.DIS ---
Provider - Provider Date of Admission: 03/07/18 15:45 Attending physician: Darwin Rangel MD Primary care physician: Darwin Rangel MD Time Spent in preparation of Discharge (in minutes): 35 Diagnosis - Discharge Diagnosis (1) Diabetes 1.5, managed as type 2 Status: Acute (2) Hypertension Status: Acute (3) Prostate CA Status: Acute (4) Anemia Status: Acute (5) ARF (acute renal failure) Status: Acute (6) Dehydration Status: Acute (7) Hypercalcemia Status: Acute Hospital Course - Lab Results Lab Results: Micro Results 03/07/18 18:30 Urine Urine Culture - Final No Growth (<1,000 CFU/ML) Most Recent Lab Values WBC 6.3 K/uL (4.8-10.8) 03/16/18 07:55 RBC 3.66 Mil/uL (4.40-5.90) L 03/16/18 07:55 Hgb 10.8 g/dL (12.0-18.0) L 03/16/18 07:55 Hct 32.1 % (35.0-51.0) L 03/16/18 07:55 MCV 87.6 fl (80.0-94.0) 03/16/18 07:55 MCH 29.6 pg (27.0-31.0) 03/16/18 07:55 MCHC 33.8 g/dL (33.0-37.0) 03/16/18 07:55 RDW 15.9 % (11.5-14.5) H 03/16/18 07:55 Plt Count 236 K/uL (130-400) 03/16/18 07:55 MPV 7.9 fl (7.2-11.7) 03/07/18 14:54 Neut % (Auto) 75.0 % (50.0-75.0) 03/07/18 14:54 Lymph % (Auto) 15.5 % (20.0-40.0) L 03/07/18 14:54 Long % (Auto) 6.4 % (0.0-10.0) 03/07/18 14:54 Eos % (Auto) 2.1 % (0.0-4.0) 03/07/18 14:54 Baso % (Auto) 1.0 % (0.0-2.0) 03/07/18 14:54 Neut # (Auto) 7.2 K/uL (1.8-7.0) H 03/07/18 14:54 Lymph # (Auto) 1.5 K/uL (1.0-4.3) 03/07/18 14:54 Long # (Auto) 0.6 K/uL (0.0-0.8) 03/07/18 14:54 Eos # (Auto) 0.2 K/uL (0.0-0.7) 03/07/18 14:54 Baso # (Auto) 0.1 K/uL (0.0-0.2) 03/07/18 14:54 PT 11.4 Seconds (9.8-13.1) 03/10/18 12:50 INR 1.0 (0.9-1.2) 03/10/18 12:50 APTT 32.5 Seconds (25.6-37.1) 03/10/18 12:50 Sodium 138 mmol/l (132-148) 03/17/18 06:50 Potassium 4.4 MMOL/L (3.6-5.0) 03/17/18 06:50 Chloride 108 mmol/L (98-107) H 03/17/18 06:50 Carbon Dioxide 21 mmol/L (22-30) L 03/17/18 06:50 Anion Gap 13 (10-20) 03/17/18 06:50 BUN 55 mg/dl (9-20) H 03/17/18 06:50 Creatinine 4.7 mg/dl (0.8-1.5) H 03/17/18 06:50 Est GFR ( Amer) 15 03/17/18 06:50 Est GFR (Non-Af Amer) 13 03/17/18 06:50 POC Glucose (mg/dL) 104 mg/dL (65-110) 03/18/18 05:31 Random Glucose 100 mg/dL (75-110) 03/17/18 06:50 Hemoglobin A1c 5.2 % (4.2-6.5) 03/14/18 06:20 Serum Osmolality 299 mosm/kg (272-300) 03/07/18 16:26 Uric Acid 7.9 mg/Dl (3.5-8.5) 03/07/18 16:26 Calcium 10.8 mg/dL (8.4-10.2) H 03/17/18 06:50 Ionized Calcium 7.3 mg/dL (4.80-5.60) H 03/08/18 06:10 Phosphorus 4.8 mg/dl (2.5-4.5) H 03/12/18 05:20 Magnesium 2.4 MG/DL (1.6-2.3) H 03/07/18 14:54 Iron 35 ug/dL (49-181) L 03/09/18 10:37 TIBC 216 ug/dL (250-450) L 03/09/18 10:37 % Saturation 16 % (20-55) L 03/09/18 10:37 Ferritin 329.0 ng/Ml (17.9-464) 03/09/18 10:37 Total Bilirubin 0.3 mg/dl (0.2-1.3) 03/17/18 06:50 Direct Bilirubin 0.2 mg/ml (0.0-0.4) 03/07/18 16:26 AST 26 U/L (17-59) 03/17/18 06:50 ALT 30 U/L (21-72) 03/17/18 06:50 Alkaline Phosphatase 75 U/L (38-126) 03/17/18 06:50 Total Creatine Kinase 118 U/L (55-170) 03/07/18 14:54 Total Protein 6.5 G/DL (6.3-8.2) 03/17/18 06:50 Total Protein (PEP) 6.4 g/dL (6.1-8.1) 03/15/18 12:00 Albumin 3.6 g/dL (3.5-5.0) 03/17/18 06:50 Albumin (PEP) 3.9 g/dL (3.8-4.8) 03/15/18 12:00 Globulin 2.8 gm/dL (2.2-3.9) 03/17/18 06:50 Albumin/Globulin Ratio 1.3 (1.0-2.1) 03/17/18 06:50 Oukwf-1-Ternunxkg 0.3 g/dL (0.2-0.3) 03/15/18 12:00 Oqgrl-7-Ueorbhccb 0.6 g/dL (0.5-0.9) 03/15/18 12:00 Beta Globulins 19.3 Relative % 03/15/18 10:09 Mgbq-0-Zvwbmakj 0.3 g/dL (0.4-0.6) L 03/15/18 12:00 Ekri-2-Ghhkznws 0.3 g/dL (0.2-0.5) 03/15/18 12:00 Gamma Globulins 0.9 g/dL (0.8-1.7) 03/15/18 12:00 Abnorm Protein Band 1 TEST NOT PERFORMED 03/15/18 12:00 Abnorm Protein Band 2 TEST NOT PERFORMED 03/15/18 12:00 Abnorm Protein Band 3 TEST NOT PERFORMED 03/15/18 12:00 Angiotensin Convert Enz 28 U/L (9-67) 03/15/18 12:00 Prostate Specific Ag 5.72 ng/ML (0.00-4.0) H 03/10/18 12:50 Vitamin B12 > 1000 pg/mL (239-931) H 03/08/18 11:09 25-OH Vitamin D Total > 252.0 NG/ML (30.0-100.0) H 03/15/18 12:00 Folate > 20.0 ng/mL 03/08/18 11:09 TSH 3rd Generation 3.02 mIU/ML (0.46-4.68) 03/08/18 06:10 PTH Intact Whole Molec 1 pg/mL (14-64) L 03/07/18 18:30 Calcium (PTH Intact) 12.0 mg/dL (8.6-10.3) H 03/11/18 05:50 PTH w/Ion &Tot Calcium 2 pg/mL (14-64) L 03/11/18 05:50 PTH Related Protein 23 pg/mL (14-27) 03/07/18 18:30 Urine Color Yellow (YELLOW) 03/07/18 15:25 Urine Clarity Clear (Clear) 03/07/18 15:25 Urine pH 6.0 (5.0-8.0) 03/07/18 15:25 Ur Specific [place] 1.009 (1.003-1.030) 03/07/18 15:25 Urine Protein Negative mg/dL (NEGATIVE) 03/07/18 15:25 Urine Glucose (UA) 50 mg/dL (Normal) 03/07/18 15:25 Urine Ketones Negative mg/dL (NEGATIVE) 03/07/18 15:25 Urine Blood Negative (NEGATIVE) 03/07/18 15:25 Urine Nitrate Negative (NEGATIVE) 03/07/18 15:25 Urine Bilirubin Negative (NEGATIVE) 03/07/18 15:25 Urine Urobilinogen 0.2-1.0 mg/dL (0.2-1.0) 03/07/18 15:25 Ur Leukocyte Esterase Neg [place]/uL (Negative) 03/07/18 15:25 Urine RBC (Auto) < 1 /hpf (0-3) 03/07/18 15:25 Urine Microscopic WBC 3 /hpf (0-5) 03/07/18 15:25 Urine Osmolality 298 mosm/kg (300-1000) L 03/07/18 18:30 Ur Random Creatinine 32 mg/dL (20-370) 03/15/18 10:09 U Random Total Protein 667 mg/g creat (22-128) H 03/15/18 10:09 Ur Random Sodium 43 meq/L 03/07/18 15:25 Ur Random Potassium 38.2 mmol/L 03/07/18 15:25 Urine Albumin (PEP) 23.0 Relative % 03/15/18 10:09 Ur Protein Fractions See note 03/15/18 10:09 IgG 1015 mg/dL (694-1618) 03/15/18 12:00 IgA 188 mg/dL (81-463) 03/15/18 12:00 IgM 82 mg/dL (48-271) 03/15/18 12:00 DORIS & SPEP Interp See note 03/15/18 12:00 Serum Immunofixation Not detected (Not Detected) 03/15/18 12:00 Urine Immunofixation Not detected (Not Detected) 03/15/18 10:09 Hepatitis A IgM Ab Negative (NEGATIVE) 03/16/18 07:55 Hep Bs Antigen Negative (NEGATIVE) 03/16/18 07:55 Hep B Core IgM Ab Negative (NEGATIVE) 03/16/18 07:55 Hepatitis C Antibody Negative (NEGATIVE) 03/16/18 07:55 HTLV I/II Antibody Nonreactive (Nonreactive) 03/14/18 06:20 - Hospital Course Hospital Course: CLINICALLY IMPROVED HYPERCALCEMIA AND DIABETES [id number] Discharge Exam - Head Exam Head Exam: ATRAUMATIC, NORMAL INSPECTION, NORMOCEPHALIC - Eye Exam Eye Exam: EOMI, Normal appearance, PERRL Pupil Exam: NORMAL ACCOMODATION, PERRL - GI/Abdominal Exam GI & Abdominal Exam: Normal Bowel Sounds - Rectal Exam Rectal Exam: NORMAL INSPECTION - Neurological Exam Neurological exam: Alert, CN II-XII Intact, Normal Gait, Oriented x3, Reflexes Normal - Psychiatric Exam Psychiatric exam: Normal Affect, Normal Mood - Skin Skin Exam: Dry, Intact, Normal Color, Warm Discharge Plan - Follow Up Plan Condition: FAIR Disposition: HOME/ ROUTINE Instructions: Hypercalcemia (DC) Additional Instructions: follow up with primary MD 1 week Referrals: Jacki Hawkins MD [Medical Doctor] - Valerie Nath MD [Medical Doctor] - Yamel Casillas MD [Staff Provider] - Darwin Rangel MD [Primary Care Provider] -
--- NOTE | 2018-03-18 15:53 | PN ---
Copied To: Valerie Nath MD Attending MD: Valerie Nath MD DATE: 03/18/2018 ENDO FOLLOWUP NOTE LOCATION: In room 669. SUBJECTIVE: This is a 67-year-old male presenting here with malignant range hypercalcemia and received vigorous IV hydration with remarkable metabolic and clinical improvement thereof. However, he continues to have progressive azotemia with renal insufficiency and underlying chronic kidney disease as noted. His repeat calcium levels today showed a calcium level of 10.8. His glucose values have remained low normal because of the initial initiation of an oral hypoglycemic therapy as given. His glucose today have ranged from 104 to 138 mg/dL. It was 67 yesterday as noted. LABORATORY DATA: The chemistry showed the BUN of 55, sodium 138, potassium 4.4, chloride 108, CO2 of 21, glucose 100, and creatinine 4.7. ASSESSMENT AND PLAN: So at this time, the patient is scheduled for discharge and he will follow with his medical doctor for outpatient medical management. We would highly recommend also a nephrology followup and evaluation because of progressive renal insufficiency and advanced azotemia. Valerie Nath MD
--- NOTE | 2018-04-13 10:49 | OP ---
PROCEDURE DATE: 03/11/2018 SURGEON: Jacki Hawkins MD ANESTHESIOLOGIST: Sander Heath MD ANESTHESIA: Deep Sedation PREOPERATIVE DIAGNOSIS: Benign prostatic hypertrophy with elevated prostate- specific antigen. POSTOPERATIVE DIAGNOSIS: Benign prostatic hypertrophy with elevated prostate- specific antigen. PROCEDURE: Transrectal ultrasound of the prostate with multiple core biopsies. DESCRIPTION OF PROCEDURE: The patient was placed on the operating table in left lateral decubitus. He was given IV sedation. At this time, a transrectal ultrasound probe was inserted. The data is as follows: Prostate was measured at 38 gm. PSA is 8.7. 12-core biopsies were taken, 6 left and 6 right side, individually identified. Once this was done, the ultrasound probe was removed. POSTOP CONDITION: The patient then was taken from the operating room in good condition. Blood loss was minimal. Jacki Hawkins MD [facility]
== END 2018-03-18 11:28 | disposition home or self-care (01) | DRG 641 ==
LOC: SUPCPDRO 13:22 → H.ER 13:22 → H.ERHOLD 15:45 → H.MEDSURG1 21:50
PROVIDERS: ADMIT Internal Medicine Pulmonary Disease; ATTEND Internal Medicine Pulmonary Disease
PROC: 0VB03ZX Excision of Prostate, Percutaneous Approach, Diagnostic (ICD-10-PCS; principal; 2018-03-11 12:00)
DX: E83.52 Hypercalcemia (principal); N17.9 Acute kidney failure, unspecified; N18.4 Chronic kidney disease, stage 4 (severe); N25.81 Secondary hyperparathyroidism of renal origin; E86.0 Dehydration; E87.5 Hyperkalemia; F41.9 Anxiety disorder, unspecified; E11.42 Type 2 diabetes mellitus with diabetic polyneuropathy; I12.9 Hypertensive chronic kidney disease with stage 1 through stage 4 chronic kidney disease, or unspecified chronic kidney disease; K21.9 Gastro-esophageal reflux disease without esophagitis; K22.70 Barrett's esophagus without dysplasia; N40.0 Benign prostatic hyperplasia without lower urinary tract symptoms; T45.2X5A Adverse effect of vitamins, initial encounter; Z79.82 Long term (current) use of aspirin; Z82.49 Family history of ischemic heart disease and other diseases of the circulatory system; Z83.3 Family history of diabetes mellitus; C61 Malignant neoplasm of prostate; D64.9 Anemia, unspecified; E11.21 Type 2 diabetes mellitus with diabetic nephropathy; E11.22 Type 2 diabetes mellitus with diabetic chronic kidney disease; E11.649 Type 2 diabetes mellitus with hypoglycemia without coma; E67.3 Hypervitaminosis D; E78.5 Hyperlipidemia, unspecified; E83.39 Other disorders of phosphorus metabolism; K29.50 Unspecified chronic gastritis without bleeding; Z79.84 Long term (current) use of oral hypoglycemic drugs